=== PATIENT | female | born 1940 | race Caucasian/White ===

== ENCOUNTER 2019-04-29 17:02 | Emergency (ER) | payer MEDICARE, SELFPAY ==
[2019-04-29 17:15] VITALS: BP 158/93; PULSE 100; RESP 24; TEMP 36.8; O2SAT 98
[2019-04-29 17:33] VITALS: PULSE 91; RESP 12; O2SAT 96
[2019-04-29] MEDS: ALBUTEROL/IPRATROPIUM 3 ML AMPUL INH ×2 (17:34→18:49)
[2019-04-29 17:45] VITALS: BP 181/75; PULSE 84; RESP 17; O2SAT 96
[2019-04-29 18:02] VITALS: BP 174/76; PULSE 82; RESP 17; O2SAT 96
--- NOTE | 2019-04-29 18:14 | ED.SOB ---
HPI - SOB/Dyspnea General Chief Complaint: Shortness of Breath/Dyspnea Stated Complaint: DIFFICULTY BREATHING Time Seen by Provider: 04/29/19 18:01 Source: patient Mode of arrival: ambulatory Limitations: no limitations History of Present Illness 78-year-old female smoker with history of COPD presents to the emergency department a chief complaint of 3 days of worsening shortness of breath and wheezing. She states that her bronchodilators at home are not helping. Denies any cough, fever or chills. She denies any chest pain. She has no nausea, vomiting or diarrhea. She denies increased swelling in her legs, or change in orthopnea. She states a few weeks ago she had her normal dose of furosemide decreased from 40-20 mg daily MD Complaint: shortness of breath Onset (ago): day(s) Severity: moderate Consistency/Duration: constant Relieving factors: nothing Exacerbating factors: nothing Known history of: COPD Associated symptoms: denies other symptoms Treatment prior to arrival: bronchodilator Related Data Previous Rx's Medication Instructions Recorded azithromycin See Rx Instructions .ROUTE 04/29/19 .COMPLEX #6 tab prednisone 20 mg PO DAILY #5 tab 04/29/19 Review of Systems Constitutional Denies chills, Denies fever(s), Denies lethargy and Denies weakness Eyes Denies change in vision, Denies eye discharge, Denies irritation and Denies loss of vision ENT Ears, Nose, Mouth, and Throat: Denies change in voice, Denies neck pain and Denies sore throat Cardiovascular Denies chest pain, Denies irregular heart rhythm, Denies lightheadedness, Denies palpitations, Reports dyspnea, Denies dyspnea on exertion and Denies orthopnea Respiratory Denies cough, Reports dyspnea, Denies dyspnea on exertion and Reports wheezing Gastrointestinal Gastrointestinal: Denies abdominal pain, Denies change in bowel habits, Denies diarrhea, Denies nausea and Denies vomiting Genitourinary Denies hematuria, Denies flank pain, Denies urinary incontinence and Denies urinary urgency Musculoskeletal Denies neck pain Integumentary/Breasts Denies pruritus, Denies erythema, Denies rash and Denies wounds Neurologic Denies confusion, Denies loss of vision and Denies weakness Psychiatric Denies anxiety, Denies confusion, Denies depression, Denies homicidal ideation and Denies suicidal ideation Endocrine Denies palpitations Hematologic/Lymphatic Denies easy bruising Allergic/Immunologic Reports wheezing PFSH Social History Smoking Status: Current some day smoker Social History Smoking Status: Current some day smoker Exam Narrative Exam Narrative: GENERAL: 78-year-old female appears stated age, in mild distress, resting relatively comfortably. HEAD: Atraumatic. Normocephalic. No temporal or scalp tenderness. EYES: Pupils equal round and reactive. Extraocular motions intact. No scleral icterus. No injection or drainage. ENT: Nose without bleeding, purulent drainage or septal hematoma. Throat without erythema, tonsillar hypertrophy or exudate. Uvula midline. Airway patent. NECK: Trachea midline. No JVD or lymphadenopathy. Supple, nontender, no meningeal signs. CARDIOVASCULAR: Regular rate and rhythm without murmurs, gallops, or rubs. RESPIRATORY: Prolonged expiratory phase with decreased breath sounds bilaterally. Wheezing in all gamboa. No significant tachypnea or respiratory distress GASTROINTESTINAL: Abdomen soft, non-tender, nondistended. No hepato-splenomegaly, or palpable masses. No guarding. EXTREMITIES: No clubbing, cyanosis, but mild pitting edema noted B/L LE BACK: Nontender without deformity or crepitance. No flank tenderness. NEURO: AOx3. SKIN: No rash or erythema. Initial Vital Signs Initial Vital Signs: Vital Signs Temperature 98.3 F 04/29/19 17:15 Pulse Rate 100 H 04/29/19 17:15 Respiratory Rate 24 04/29/19 17:15 Blood Pressure 158/93 H 04/29/19 17:15 Pulse Oximetry 98 04/29/19 17:15 Course Orders Ordered: ED Orders 04/29/19 17:18 EKG-12 Lead Routine 04/29/19 17:35 B Type Natriuretic Peptide Stat Basic Metabolic Panel Stat Complete Blood Count AUTO DIFF Stat Procalcitonin Stat 04/29/19 18:17 XR chest 2V Stat Discontinued Medications Albuterol/Ipratropium (Duoneb) 3 ml INH NOW ONE Stop: 04/29/19 17:34 Last Admin: 04/29/19 17:34 Dose: 3 ml Albuterol/Ipratropium (Duoneb) 3 ml INH RTQ4HR PRN PRN Reason: Shortness Of Breath Last Admin: 04/29/19 18:49 Dose: 3 ml Methylprednisolone (Solu-Medrol 125 Mg Vial) 125 mg IV NOW ONE Stop: 04/29/19 18:18 Last Admin: 04/29/19 18:24 Dose: 125 mg Reevaluation(s) Reevaluation #1: Bronchodilators clear the patient's expiratory wheeze a small amount and faint crackles are now noted in bilateral bases Vital Signs - 8 hr 04/29/19 17:15 04/29/19 17:33 04/29/19 17:45 Temperature 98.3 F Pulse Rate 100 H 91 H 84 Respiratory Rate 24 12 17 Blood Pressure 158/93 H Blood Pressure [Left Arm] 181/75 H Pulse Oximetry 98 96 96 04/29/19 18:02 04/29/19 18:50 04/29/19 19:43 Temperature Pulse Rate 82 79 79 Respiratory Rate 17 20 22 Blood Pressure 182/87 H Blood Pressure [Left Arm] 174/76 H Pulse Oximetry 96 96 95 MDM - SOB/Dyspnea Lab Data Result diagrams: 04/29/19 17:35 04/29/19 17:35 Lab Results 04/29/19 04/29/19 04/29/19 Range/Units 17:35 17:35 17:35 WBC 4.7 (4.5-11.0) X10^3/uL RBC 4.06 (4.0-5.2) X10^6/uL Hgb 12.0 (12.0-16.0) g/dL Hct 35.5 L (36-46) % MCV 87.6 (80-100) fL MCH 29.5 (26-34) PG MCHC 33.7 (30-36) % RDW 14.9 H (11.6-14.8) % Plt Count 143 L (150-400) X10^3/uL Neut % (Auto) 71.4 (50-75) % Lymph % (Auto) 16.7 L (25-40) % [place] % (Auto) 9.6 (3-14) % Eos % (Auto) 1.4 L (2-4) % Baso % (Auto) 0.9 (0-2) % Neut # (Auto) 3400 (6680-5760) /uL Lymph # (Auto) 800 L (4105-5550) /uL [place] # (Auto) 500 (0-900) /uL Eos # (Auto) 100 (0-450) /uL Baso # (Auto) 0 (0-100) /uL Sodium 133 L (137-145) mmol/L Potassium 3.7 (3.4-5.1) mmol/L Chloride 105 (98-107) mmol/L Carbon Dioxide 24 (22-32) mmol/L BUN 25 H (7-17) mg/dL Creatinine 1.80 H (0.52-1.04) mg/dL Estimated GFR 27.3 L (>60) mL/min BUN/Creatinine Ratio 13.9 (6-22) Glucose 443 H (80-110) mg/dL Calcium 8.1 L (8.4-10.2) mg/dL B-Natriuretic Peptide (<100) Procalcitonin < 0.05 (<0.5) ng/mL 04/29/19 Range/Units 17:35 WBC (4.5-11.0) X10^3/uL RBC (4.0-5.2) X10^6/uL Hgb (12.0-16.0) g/dL Hct (36-46) % MCV (80-100) fL MCH (26-34) PG MCHC (30-36) % RDW (11.6-14.8) % Plt Count (150-400) X10^3/uL Neut % (Auto) (50-75) % Lymph % (Auto) (25-40) % [place] % (Auto) (3-14) % Eos % (Auto) (2-4) % Baso % (Auto) (0-2) % Neut # (Auto) (8057-3065) /uL Lymph # (Auto) (8036-2257) /uL [place] # (Auto) (0-900) /uL Eos # (Auto) (0-450) /uL Baso # (Auto) (0-100) /uL Sodium (137-145) mmol/L Potassium (3.4-5.1) mmol/L Chloride (98-107) mmol/L Carbon Dioxide (22-32) mmol/L BUN (7-17) mg/dL Creatinine (0.52-1.04) mg/dL Estimated GFR (>60) mL/min BUN/Creatinine Ratio (6-22) Glucose (80-110) mg/dL Calcium (8.4-10.2) mg/dL B-Natriuretic Peptide 552 H (<100) Procalcitonin (<0.5) ng/mL Imaging Data Chest x-ray: Radiologist's impression: YONI CUNHA 78 F [address] [address] XRay Report Signed Patient: YONI CUNHA DMR#: [id number] : 1940cct:[id number] Age/Sex: 78 / FDate of Service: 04/29/19 Loc: ED Accession Number: [id number] Procedure: XR chest 2V Ordering Provider: Balta Hinds D.O. PROCEDURE: XR CHEST 2V INDICATIONS: shortness of breath TECHNIQUE: 2 views of the chest were acquired. COMPARISON: [facility], CT, CT CHEST WO CON, 03/20/2016, 7:40. FINDINGS: Surgical changes and devices: None. Lungs and pleura: Increased interstitial markings with a central predominance bilaterally. Trace fluid in the right minor fissure. Small dependent bilateral pleural effusions. No pneumothorax. Increased AP diameter of the chest. No consolidation. Mediastinum: Mediastinal contours are within normal limits. Heart size is normal. Bones and chest wall: No suspicious bony abnormalities. Soft tissues appear unremarkable. IMPRESSION: Findings most compatible with mild fluid overload/CHF superimposed on a background of emphysematous change. Small bilateral pleural effusions. Dictated by: Brian Soni M.D. on 04/29/2019 at 19:00 Approved by: Brian Soni M.D. on 04/29/2019 at 19:03 [facility] Narrative Medical decision making narrative: 78-year-old female in no significant respiratory distress with stable vital signs responds minimally to bronchodilators. Chest x-ray suggests fluid overload, exam supports this somewhat a patient's history defers a bit. This most likely is a combination of multiple diagnoses including exacerbation of COPD as evidenced by prolonged expiratory phase and some improvement with bronchodilators, acute exacerbation of CHF as evidenced by chest x-ray findings, slight increase in BNP and faint crackles in her bases. The possibility of atypical pneumonia is considered as well. Patient responded to treatment, is non toxic, in no significant respiratory distress, not even requiring supplemental oxygen. She can appropriately be treated as an outpatient and has been given significant return precautions. Answered to her apparent satisfaction Discharge Plan Departure Patient Disposition: Home Clinical Impression: Acute exacerbation of chronic obstructive airways disease, Atypical pneumonia CHF (congestive heart failure) Qualifiers: Heart failure type: unspecified Heart failure chronicity: chronic Qualified Code(s): I50.9 - Heart failure, unspecified Discharge Date/Time: 04/29/19 19:44 Interventions: ED Discharge Assessment Last Done: 04/29/19 19:43 Instructions: Chronic Obstructive Pulmonary Disease Activity Restrictions/Additional Instructions: *You have been diagnosed with [acute exacerbation of COPD and possible atypical pneumonia] *What to do: *Take medications as directed: Please fill the prescriptions and also increase your water pill (Furosemide) back to 40mg daily for the next 4 days and then go back to your 20mg dosing again *Follow up with your primary care provider in 2-3 days, call for an appointment. Let them know you were seen in the Emergency Department and that we ask that you be seen in follow up *Return to ER if you should have any new, worsening or concerning symptoms Prescriptions: New azithromycin 250 mg tablet See Rx Instructions .ROUTE .COMPLEX Qty: 6 RF: 0 prednisone 20 mg tablet 20 mg PO DAILY Qty: 5 RF: 0
--- NOTE | 2019-04-29 18:17 | DI.RAD.S_ITS ---
PROCEDURE: XR CHEST 2V INDICATIONS: shortness of breath TECHNIQUE: 2 views of the chest were acquired. COMPARISON: [facility], CT, CT CHEST WO CON, 03/20/2016, 7:40. FINDINGS: Surgical changes and devices: None. Lungs and pleura: Increased interstitial markings with a central predominance bilaterally. Trace fluid in the right minor fissure. Small dependent bilateral pleural effusions. No pneumothorax. Increased AP diameter of the chest. No consolidation. Mediastinum: Mediastinal contours are within normal limits. Heart size is normal. Bones and chest wall: No suspicious bony abnormalities. Soft tissues appear unremarkable. IMPRESSION: Findings most compatible with mild fluid overload/CHF superimposed on a background of emphysematous change. Small bilateral pleural effusions. Dictated by: Brian Soni M.D. on 04/29/2019 at 19:00 Approved by: Brian Soni M.D. on 04/29/2019 at 19:03
[2019-04-29] MEDS: methylPREDNISolone 125 MG/2 ML VIAL IV (18:24)
[2019-04-29 18:29] LABS: Add Manual Diff / Slide Review NO; Basophils Absolute Auto 0 /uL (0-100); Basophils Percent Auto 0.9 % (0-2); Eosinophils Absolute Auto 100 /uL (0-450); Eosinophils Percent Auto 1.4 % (2-4); Hematocrit 35.5 % (36-46); Lymphocytes Absolute Auto 800 /uL (1100-4500); Lymphocytes Percent Auto 16.7 % (25-40); Mean Corpuscular HGB Conc 33.7 % (30-36); Mean Corpuscular Hemoglobin 29.5 PG (26-34); Mean Corpuscular Volume 87.6 fL (80-100); Monocytes Absolute Auto 500 /uL (0-900); Monocytes Percent Auto 9.6 % (3-14); Neutrophils Absolute Auto 3400 /uL (1500-7000); Neutrophils Percent Auto 71.4 % (50-75); Platelet Count 143 X10^3/uL (150-400); Red Blood Cell Count 4.06 X10^6/uL (4.0-5.2); Red Cell Distribution Width 14.9 % (11.6-14.8); White Blood Cell Count 4.7 X10^3/uL (4.5-11.0)
[2019-04-29 18:33] LABS: BUN Creatinine Ratio 13.9 (6-22); Blood Urea Nitrogen 25 mg/dL (7-17); Calcium 8.1 mg/dL (8.4-10.2); Carbon Dioxide 24 mmol/L (22-32); Chloride 105 mmol/L (98-107); Estimated Glomerular Filt Rate 27.3 mL/min (>60); Glucose 443 mg/dL (80-110); HEMOLYSIS < 15 (0-50); Potassium 3.7 mmol/L (3.4-5.1); Sodium 133 mmol/L (137-145)
--- NOTE | 2019-04-29 18:49 | ED_ITS ---
HPI - SOB/Dyspnea General Chief Complaint: Shortness of Breath/Dyspnea Stated Complaint: DIFFICULTY BREATHING Time Seen by Provider: 04/29/19 18:01 Source: patient Mode of arrival: ambulatory Limitations: no limitations History of Present Illness 78-year-old female smoker with history of COPD presents to the emergency department a chief complaint of 3 days of worsening shortness of breath and wheezing. She states that her bronchodilators at home are not helping. Denies any cough, fever or chills. She denies any chest pain. She has no nausea, vomiting or diarrhea. She denies increased swelling in her legs, or change in orthopnea. She states a few weeks ago she had her normal dose of furosemide decreased from 40-20 mg daily MD Complaint: shortness of breath Onset (ago): day(s) Severity: moderate Consistency/Duration: constant Relieving factors: nothing Exacerbating factors: nothing Known history of: COPD Associated symptoms: denies other symptoms Treatment prior to arrival: bronchodilator Related Data Previous Rx's Medication Instructions Recorded azithromycin See Rx Instructions .ROUTE 04/29/19 .COMPLEX #6 tab prednisone 20 mg PO DAILY #5 tab 04/29/19 Review of Systems Constitutional Denies chills, Denies fever(s), Denies lethargy and Denies weakness Eyes Denies change in vision, Denies eye discharge, Denies irritation and Denies loss of vision ENT Ears, Nose, Mouth, and Throat: Denies change in voice, Denies neck pain and Denies sore throat Cardiovascular Denies chest pain, Denies irregular heart rhythm, Denies lightheadedness, Denies palpitations, Reports dyspnea, Denies dyspnea on exertion and Denies orthopnea Respiratory Denies cough, Reports dyspnea, Denies dyspnea on exertion and Reports wheezing Gastrointestinal Gastrointestinal: Denies abdominal pain, Denies change in bowel habits, Denies diarrhea, Denies nausea and Denies vomiting Genitourinary Denies hematuria, Denies flank pain, Denies urinary incontinence and Denies urinary urgency Musculoskeletal Denies neck pain Integumentary/Breasts Denies pruritus, Denies erythema, Denies rash and Denies wounds Neurologic Denies confusion, Denies loss of vision and Denies weakness Psychiatric Denies anxiety, Denies confusion, Denies depression, Denies homicidal ideation and Denies suicidal ideation Endocrine Denies palpitations Hematologic/Lymphatic Denies easy bruising Allergic/Immunologic Reports wheezing PFSH Social History Smoking Status: Current some day smoker Social History Smoking Status: Current some day smoker Exam Narrative Exam Narrative: GENERAL: 78-year-old female appears stated age, in mild distress, resting relatively comfortably. HEAD: Atraumatic. Normocephalic. No temporal or scalp tenderness. EYES: Pupils equal round and reactive. Extraocular motions intact. No scleral ic terus. No injection or drainage. ENT: Nose without bleeding, purulent drainage or septal hematoma. Throat without erythema, tonsillar hypertrophy or exudate. Uvula midline. Airway patent. NECK: Trachea midline. No JVD or lymphadenopathy. Supple, nontender, no meningeal signs. CARDIOVASCULAR: Regular rate and rhythm without murmurs, gallops, or rubs. RESPIRATORY: Prolonged expiratory phase with decreased breath sounds bilaterally. Wheezing in all [place]. No significant tachypnea or respiratory distress GASTROINTESTINAL: Abdomen soft, non-tender, nondistended. No hepato- splenomegaly, or palpable masses. No guarding. EXTREMITIES: No clubbing, cyanosis, but mild pitting edema noted B/L LE BACK: Nontender without deformity or crepitance. No flank tenderness. NEURO: AOx3. SKIN: No rash or erythema. Initial Vital Signs Initial Vital Signs: Vital Signs Temperature 98.3 F 04/29/19 17:15 Pulse Rate 100 H 04/29/19 17:15 Respiratory Rate 24 04/29/19 17:15 Blood Pressure 158/93 H 04/29/19 17:15 Pulse Oximetry 98 04/29/19 17:15 Course Orders Ordered: ED Orders 04/29/19 17:18 EKG-12 Lead Routine 04/29/19 17:35 B Type Natriuretic Peptide Stat Basic Metabolic Panel Stat Complete Blood Count AUTO DIFF Stat Procalcitonin Stat 04/29/19 18:17 XR chest 2V Stat Discontinued Medications Albuterol/Ipratropium (Duoneb) 3 ml INH NOW ONE Stop: 04/29/19 17:34 Last Admin: 04/29/19 17:34 Dose: 3 ml Albuterol/Ipratropium (Duoneb) 3 ml INH RTQ4HR PRN PRN Reason: Shortness Of Breath Last Admin: 04/29/19 18:49 Dose: 3 ml Methylprednisolone (Solu-Medrol 125 Mg Vial) 125 mg IV NOW ONE Stop: 04/29/19 18:18 Last Admin: 04/29/19 18:24 Dose: 125 mg Reevaluation(s) Reevaluation #1: Bronchodilators clear the patient's expiratory wheeze a small amount and faint crackles are now noted in bilateral bases Vital Signs - 8 hr 04/29/19 17:15 04/29/19 17:33 04/29/19 17:45 Temperature 98.3 F Pulse Rate 100 H 91 H 84 Respiratory Rate 24 12 17 Blood Pressure 158/93 H Blood Pressure [Left Arm] 181/75 H Pulse Oximetry 98 96 96 04/29/19 18:02 04/29/19 18:50 04/29/19 19:43 Temperature Pulse Rate 82 79 79 Respiratory Rate 17 20 22 Blood Pressure 182/87 H Blood Pressure [Left Arm] 174/76 H Pulse Oximetry 96 96 95 MDM - SOB/Dyspnea Lab Data Result diagrams: 04/29/19 17:35 04/29/19 17:35 Lab Results 04/29/19 04/29/19 04/29/19 Range/Units 17:35 17:35 17:35 WBC 4.7 (4.5-11.0) X10^3/uL RBC 4.06 (4.0-5.2) X10^6/uL Hgb 12.0 (12.0-16.0) g/dL Hct 35.5 L (36-46) % MCV 87.6 (80-100) fL MCH 29.5 (26-34) PG MCHC 33.7 (30-36) % RDW 14.9 H (11.6-14.8) % Plt Count 143 L (150-400) X10^3/uL Neut % (Auto) 71.4 (50-75) % Lymph % (Auto) 16.7 L (25-40) % [place] % (Auto) 9.6 (3-14) % Eos % (Auto) 1.4 L (2-4) % Baso % (Auto) 0.9 (0-2) % Neut # (Auto) 3400 (6037-0656) /uL Lymph # (Auto) 800 L (9092-0542) /uL [place] # (Auto) 500 (0-900) /uL Eos # (Auto) 100 (0-450) /uL Baso # (Auto) 0 (0-100) /uL Sodium 133 L (137-145) mmol/L Potassium 3.7 (3.4-5.1) mmol/L Chloride 105 (98-107) mmol/L Carbon Dioxide 24 (22-32) mmol/L BUN 25 H (7-17) mg/dL Creatinine 1.80 H (0.52-1.04) mg/dL Estimated GFR 27.3 L (>60) mL/min BUN/Creatinine Ratio 13.9 (6-22) Glucose 443 H (80-110) mg/dL Calcium 8.1 L (8.4-10.2) mg/dL B-Natriuretic Peptide (<100) Procalcitonin < 0.05 (<0.5) ng/mL 04/29/19 Range/Units 17:35 WBC (4.5-11.0) X10^3/uL RBC (4.0-5.2) X10^6/uL Hgb (12.0-16.0) g/dL Hct (36-46) % MCV (80-100) fL MCH (26-34) PG MCHC (30-36) % RDW (11.6-14.8) % Plt Count (150-400) X10^3/uL Neut % (Auto) (50-75) % Lymph % (Auto) (25-40) % [place] % (Auto) (3-14) % Eos % (Auto) (2-4) % Baso % (Auto) (0-2) % Neut # (Auto) (9492-9125) /uL Lymph # (Auto) (2932-5627) /uL [place] # (Auto) (0-900) /uL Eos # (Auto) (0-450) /uL Baso # (Auto) (0-100) /uL Sodium (137-145) mmol/L Potassium (3.4-5.1) mmol/L Chloride (98-107) mmol/L Carbon Dioxide (22-32) mmol/L BUN (7-17) mg/dL Creatinine (0.52-1.04) mg/dL Estimated GFR (>60) mL/min BUN/Creatinine Ratio (6-22) Glucose (80-110) mg/dL Calcium (8.4-10.2) mg/dL B-Natriuretic Peptide 552 H (<100) Procalcitonin (<0.5) ng/mL Imaging Data Chest x-ray: Radiologist's impression: YONI CUNHA 78 F [address] [address] XRay Report Signed Patient: YONI CUNHA DMR#: [id number] : 1940cct:[id number] Age/Sex: 78 / FDate of Service: 04/29/19 Loc: ED Accession Number: [id number] Procedure: XR chest 2V Ordering Provider: Balta Hinds D.O. PROCEDURE: XR CHEST 2V INDICATIONS: shortness of breath TECHNIQUE: 2 views of the chest were acquired. COMPARISON: [facility], CT, CT CHEST WO CON, 03/20/2016, 7:40. FINDINGS: Surgical changes and devices: None. Lungs and pleura: Increased interstitial markings with a central predominance bilaterally. Trace fluid in the right minor fissure. Small dependent bilateral pleural effusions. No pneumothorax. Increased AP diameter of the chest. No consolidation. Mediastinum: Mediastinal contours are within normal limits. Heart size is normal. Bones and chest wall: No suspicious bony abnormalities. Soft tissues appear unremarkable. IMPRESSION: Findings most compatible with mild fluid overload/CHF superimposed on a background of emphysematous change. Small bilateral pleural effusions. Dictated by: Brian Soni M.D. on 04/29/2019 at 19:00 Approved by: Brian Soni M.D. on 04/29/2019 at 19:03 [facility] Narrative Medical decision making narrative: 78-year-old female in no significant respiratory distress with stable vital signs responds minimally to bronchodilators. Chest x-ray suggests fluid overload, exam supports this somewhat a patient's history defers a bit. This most likely is a combination of multiple diagnoses including exacerbation of COPD as evidenced by prolonged expiratory phase and some improvement with bronchodilators, acute exacerbation of CHF as evidenced by chest x-ray findings, slight increase in BNP and faint crackles in her bases. The possibility of atypical pneumonia is considered as well. Patient responded to treatment, is non toxic, in no significant respiratory distress, not even requiring supplemental oxygen. She can appropriately be treated as an outpatient and has been given significant return precautions. Answered to her apparent satisfaction Discharge Plan Departure Patient Disposition: Home Clinical Impression: Acute exacerbation of chronic obstructive airways disease, Atypical pneumonia CHF (congestive heart failure) Qualifiers: Heart failure type: unspecified Heart failure chronicity: chronic Qualified Code(s): I50.9 - Heart failure, unspecified Discharge Date/Time: 04/29/19 19:44 Interventions: ED Discharge Assessment Last Done: 04/29/19 19:43 Instructions: Chronic Obstructive Pulmonary Disease Activity Restrictions/Additional Instructions: *You have been diagnosed with [acute exacerbation of COPD and possible atypical pneumonia] *What to do: *Take medications as directed: Please fill the prescriptions and also increase your water pill (Furosemide) back to 40mg daily for the next 4 days and then go back to your 20mg dosing again *Follow up with your primary care provider in 2-3 days, call for an appointment. Let them know you were seen in the Emergency Department and that we ask that you be seen in follow up *Return to ER if you should have any new, worsening or concerning symptoms Prescriptions: New azithromycin 250 mg tablet See Rx Instructions .ROUTE .COMPLEX Qty: 6 RF: 0 prednisone 20 mg tablet 20 mg PO DAILY Qty: 5 RF: 0
[2019-04-29 18:50] VITALS: PULSE 79; RESP 20; O2SAT 96
[2019-04-29 18:51] LABS: Procalcitonin < 0.05 ng/mL (<0.5)
[2019-04-29 19:43] VITALS: BP 182/87; PULSE 79; RESP 22; O2SAT 95
[2019-04-29 19:52] LABS: B Type Natriuretic Peptide 552 (<100)
== END 2019-04-29 19:44 | disposition home or self-care (01) ==
PROVIDERS: Emergency Provider Emergency Medicine
DX: J44.1 Chronic obstructive pulmonary disease with (acute) exacerbation (principal); J18.9 Pneumonia, unspecified organism; I50.9 Heart failure, unspecified
CPT/HCPCS: 71046; 80048; 83880; 84145; 85025; 93005; 94640; 96374; 99282; 99285; J2930

== ENCOUNTER 2019-05-01 07:23 | Emergency (ER) | payer MEDICARE, SELFPAY ==
[2019-05-01] VITALS (7 sets, daily range): BP systolic 167–190; BP diastolic 76–108; PULSE 78–92; RESP 14–20; TEMP 36.3–36.8; O2SAT 98–100
--- NOTE | 2019-05-01 07:35 | DI.RAD.S_ITS ---
PROCEDURE: XR CHEST 2V INDICATIONS: shortness of breath TECHNIQUE: 2 views of the chest were acquired. COMPARISON: [facility], CR, CHEST 2VW, 04/02/2015, 11:04. [facility], CR, XR CHEST 2V, 04/29/2019, 18:17. [facility], CT, CT CHEST WO CON, 03/20/2016, 7:40. FINDINGS: Surgical changes and devices: None. Lungs and pleura: Bilateral interstitial infiltrates. There is mild pulmonary fibrosis in lower lobes. No pleural effusions or pneumothorax. Mediastinum: Mediastinal contours are normal. Heart size is normal. Bones and chest wall: No suspicious bony abnormalities. Soft tissues appear unremarkable. IMPRESSION: Bilateral interstitial infiltrates and mild pulmonary fibrosis consistent with chronic interstitial lung disease. Dictated by: Duc Gonzalez M.D. on 05/01/2019 at 8:45 Approved by: Duc Gonzalez M.D. on 05/01/2019 at 8:47
[2019-05-01] MEDS: ALBUTEROL/IPRATROPIUM 3 ML AMPUL INH (07:40)
--- NOTE | 2019-05-01 07:46 | ED.SOB ---
HPI - SOB/Dyspnea General Chief Complaint: Shortness of Breath/Dyspnea Stated Complaint: Can't breath Time Seen by Provider: 05/01/19 07:28 Source: patient Mode of arrival: ambulatory Limitations: no limitations History of Present Illness Patient is a 78-year-old female with history of COPD and CHF, coronary artery disease presenting with increasing shortness of breath. She was seen evaluated here 2 days ago for the same. Apparently her furosemide dose decreased from 40-20 mg few weeks ago. 2 days ago with thought she had COPD she was placed on prednisone and azithromycin. She states that she really does not feel any better this morning she woke up and she was worse. She feels like she needs to cough but she can't cough anything up. She has not had fever or chills. She denies any chest pain. She denies any swelling in her legs. MD Complaint: shortness of breath and cough Onset (ago): day(s) Severity: moderate Consistency/Duration: constant Relieving factors: nothing Exacerbating factors: nothing Known history of: COPD and congestive heart failure Related Data Home oxygen amount: none Home Medications Medication Instructions Recorded Confirmed albuterol sulfate 3 ml INHALATION Q6H PRN 05/01/19 05/01/19 amlodipine 5 mg PO DAILY 05/01/19 05/01/19 aspirin 81 mg PO DAILY 05/01/19 05/01/19 atorvastatin 40 mg PO QPM 05/01/19 05/01/19 buspirone 7.5 mg PO TID 05/01/19 05/01/19 carvedilol 12.5 mg PO BID 05/01/19 05/01/19 clopidogrel 75 mg PO DAILY 05/01/19 05/01/19 furosemide 40 mg PO DAILY 05/01/19 05/01/19 insulin glargine [Lantus Solostar 31 units SUBCUT BID 05/01/19 05/01/19 U-100 Insulin] losartan 100 mg PO DAILY 05/01/19 05/01/19 potassium chloride 20 meq PO DAILY 05/01/19 05/01/19 Previous Rx's Medication Instructions Recorded azithromycin See Rx Instructions .ROUTE 04/29/19 .COMPLEX #6 tab prednisone 20 mg PO DAILY #5 tab 04/29/19 Allergies Allergy/AdvReac Type Severity Reaction Status Date / Time No Known Drug Allergies Allergy Verified 05/01/19 07:43 Review of Systems Review of Systems ROS Unobtainable: All systems reviewed & are unremarkable except as noted in HPI and below Constitutional Denies chills, Denies fever(s), Denies lethargy and Denies weakness Eyes Denies change in vision, Denies eye discharge, Denies irritation and Denies loss of vision ENT Ears, Nose, Mouth, and Throat: Denies change in voice, Denies neck pain and Denies sore throat Cardiovascular Denies chest pain, Denies edema, Denies irregular heart rhythm and Reports dyspnea Respiratory Reports as per HPI, Reports chest congestion, Reports cough and Reports dyspnea Gastrointestinal Gastrointestinal: Denies abdominal pain, Denies change in bowel habits, Denies diarrhea, Denies nausea and Denies vomiting Genitourinary Denies hematuria, Denies flank pain, Denies urinary incontinence and Denies urinary urgency Musculoskeletal Denies neck pain Integumentary/Breasts Denies pruritus, Denies erythema, Denies rash and Denies wounds Neurologic Denies loss of vision and Denies weakness [facility] Medical History CHF (congestive heart failure) (Acute) COPD (chronic obstructive pulmonary disease) (Acute) Coronary artery disease (Acute) Social History Smoking Status: Current every day smoker Social History Smoking Status: Current every day smoker Exam Initial Vital Signs Initial Vital Signs: Vital Signs Temperature 97.3 F L 05/01/19 07:35 Pulse Rate 92 H 05/01/19 07:35 Respiratory Rate 20 05/01/19 07:35 Blood Pressure 170/108 H 05/01/19 07:35 Pulse Oximetry 99 05/01/19 07:35 GENERAL: Alert female appears in mild respiratory distress HEENT: Head atraumatic,EOMI, pupils reactive, face symmetric CARDIOVASCULAR: Regular rate and rhythm without murmurs, rubs or gallops. RESPIRATORY: Coarse breath sounds bilaterally wheezing bilaterally able to speak in 5-10 word sentences ABDOMEN: Soft, nontender. Normoactive bowel sounds all 4 quadrants. No guarding or rebound. EXTREMITIES: Normal range of motion, no clubbing or edema. Neurovascularly intact NEUROLOGICAL: Alert and oriented x4.Normal gait and speech. Cranial nerves II through XII grossly intact. SKIN: Warm, dry, no laceration, no petechiae, no rashes or lesions. Course Orders Ordered: ED Orders 05/01/19 07:35 XR chest 2V Stat EKG-12 Lead Stat Measure peak expiratory flow ONCE RT Consult Eval and Treat Now 05/01/19 07:50 Partial Thromboplastin Time Stat 05/01/19 07:58 B Type Natriuretic Peptide Stat Complete Blood Count AUTO DIFF Stat Comprehensive Metabolic Panel Stat Lactate (Lactic Acid) Stat Troponin & CK Cardiac Panel Stat 05/01/19 09:08 EKG-12 Lead Stat 05/01/19 10:12 PT [Prothrombin Time INR] Stat Discontinued Medications Albuterol/Ipratropium (Duoneb) 3 ml INH NOW ONE Stop: 05/01/19 07:38 Last Admin: 05/01/19 07:40 Dose: 3 ml Aspirin (Aspirin Chew) 324 mg PO NOW ONE Stop: 05/01/19 09:09 Last Admin: 05/01/19 09:29 Dose: 324 mg Furosemide (Lasix) 40 mg IV NOW ONE Stop: 05/01/19 08:18 Last Admin: 05/01/19 08:32 Dose: 40 mg Heparin Sodium (Porcine) (Heparin) 5,000 unit IV NOW ONE Stop: 05/01/19 09:09 Last Admin: 05/01/19 09:53 Dose: 5,000 unit Heparin Sodium/Dextrose (Heparin Drip) 25,000 unit in 500 mls @ 19.488 mls/hr IV CONT JYOTI; Protocol Last Titration: 05/01/19 11:22 Dose: 0 units/kg/hr, 0 mls/hr Admin: 05/01/19 09:52 Dose: 12 units/kg/hr, 19.488 mls/hr Nitroglycerin (Nitrostat) 0.4 mg SL NOW ONE Stop: 05/01/19 09:11 Last Admin: 05/01/19 09:29 Dose: 0.4 mg Vital Signs - 8 hr 05/01/19 07:35 05/01/19 07:47 05/01/19 08:55 Temperature 97.3 F L Pulse Rate 92 H 78 82 Respiratory Rate 20 16 16 Blood Pressure 170/108 H Blood Pressure [Right Arm] 176/76 H Pulse Oximetry 99 98 98 05/01/19 09:40 05/01/19 10:37 05/01/19 11:11 Temperature Pulse Rate 84 80 83 Respiratory Rate 14 17 14 Blood Pressure Blood Pressure [Right Arm] 167/84 H 178/77 H 190/88 H Pulse Oximetry 100 100 100 05/01/19 11:28 Temperature 98.2 F Pulse Rate 83 Respiratory Rate 18 Blood Pressure 183/77 H Blood Pressure [Right Arm] Pulse Oximetry 100 MDM - SOB/Dyspnea Lab Data Attestation: I reviewed the patient's lab results. Result diagrams: 05/01/19 07:58 05/01/19 07:58 Lab Results 05/01/19 05/01/19 05/01/19 Range/Units 07:50 07:58 07:58 WBC 6.3 (4.5-11.0) X10^3/uL RBC 4.22 (4.0-5.2) X10^6/uL Hgb 12.4 (12.0-16.0) g/dL Hct 36.5 (36-46) % MCV 86.5 (80-100) fL MCH 29.3 (26-34) PG MCHC 33.9 (30-36) % RDW 14.7 (11.6-14.8) % Plt Count 150 (150-400) X10^3/uL Neut % (Auto) 79.2 H (50-75) % Lymph % (Auto) 13.4 L (25-40) % Glasscock % (Auto) 6.8 (3-14) % Eos % (Auto) 0.3 L (2-4) % Baso % (Auto) 0.3 (0-2) % Neut # (Auto) 5000 (2625-0845) /uL Lymph # (Auto) 800 L (9422-7830) /uL Glasscock # (Auto) 400 (0-900) /uL Eos # (Auto) 0 (0-450) /uL Baso # (Auto) 0 (0-100) /uL PT (10.1-12.7) SECONDS INR (0.9-1.3) APTT 28 (26.4-36.2) SECONDS Sodium 135 L (137-145) mmol/L Potassium 3.9 (3.4-5.1) mmol/L Chloride 102 (98-107) mmol/L Carbon Dioxide 23 (22-32) mmol/L BUN 39 H (7-17) mg/dL Creatinine 2.10 H (0.52-1.04) mg/dL Estimated GFR 22.8 L (>60) mL/min BUN/Creatinine Ratio 18.6 (6-22) Glucose 398 H (80-110) mg/dL Lactate (0.7-2.1) mmol/L Calcium 8.6 (8.4-10.2) mg/dL Total Bilirubin 0.4 (0.2-1.3) mg/dL AST 28 (14-36) IU/L ALT 21 (9-52) IU/L Alkaline Phosphatase 131 H (38-126) U/L Total Creatine Kinase (30-135) U/L CK-MB (CK-2) (<2.37) ng/mL CK-MB (CK-2) Rel Index (1.5-5.0) % Troponin I (0.01-0.034) ng/mL B-Natriuretic Peptide (<100) Total Protein 6.3 (6.3-8.2) g/dL Albumin 3.2 L (3.5-5.0) g/dL Globulin 3.1 (1.7-4.1) g/dL Albumin/Globulin Ratio 1.0 (1.0-2.8) 05/01/19 05/01/19 05/01/19 Range/Units 07:58 07:58 07:58 WBC (4.5-11.0) X10^3/uL RBC (4.0-5.2) X10^6/uL Hgb (12.0-16.0) g/dL Hct (36-46) % MCV (80-100) fL MCH (26-34) PG MCHC (30-36) % RDW (11.6-14.8) % Plt Count (150-400) X10^3/uL Neut % (Auto) (50-75) % Lymph % (Auto) (25-40) % Glasscock % (Auto) (3-14) % Eos % (Auto) (2-4) % Baso % (Auto) (0-2) % Neut # (Auto) (0013-6856) /uL Lymph # (Auto) (7748-2345) /uL Glasscock # (Auto) (0-900) /uL Eos # (Auto) (0-450) /uL Baso # (Auto) (0-100) /uL PT (10.1-12.7) SECONDS INR (0.9-1.3) APTT (26.4-36.2) SECONDS Sodium (137-145) mmol/L Potassium (3.4-5.1) mmol/L Chloride (98-107) mmol/L Carbon Dioxide (22-32) mmol/L BUN (7-17) mg/dL Creatinine (0.52-1.04) mg/dL Estimated GFR (>60) mL/min BUN/Creatinine Ratio (6-22) Glucose (80-110) mg/dL Lactate 1.2 (0.7-2.1) mmol/L Calcium (8.4-10.2) mg/dL Total Bilirubin (0.2-1.3) mg/dL AST (14-36) IU/L ALT (9-52) IU/L Alkaline Phosphatase (38-126) U/L Total Creatine Kinase 202 H (30-135) U/L CK-MB (CK-2) 6.14 H (<2.37) ng/mL CK-MB (CK-2) Rel Index 3.0 (1.5-5.0) % Troponin I 6.130 H* (0.01-0.034) ng/mL B-Natriuretic Peptide 1360 H (<100) Total Protein (6.3-8.2) g/dL Albumin (3.5-5.0) g/dL Globulin (1.7-4.1) g/dL Albumin/Globulin Ratio (1.0-2.8) // Range/Units 10:12 WBC (4.5-11.0) X10^3/uL RBC (4.0-5.2) X10^6/uL Hgb (12.0-16.0) g/dL Hct (36-46) % MCV (80-100) fL MCH (26-34) PG MCHC (30-36) % RDW (11.6-14.8) % Plt Count (150-400) X10^3/uL Neut % (Auto) (50-75) % Lymph % (Auto) (25-40) % Glasscock % (Auto) (3-14) % Eos % (Auto) (2-4) % Baso % (Auto) (0-2) % Neut # (Auto) (7329-0560) /uL Lymph # (Auto) (8827-9422) /uL Glasscock # (Auto) (0-900) /uL Eos # (Auto) (0-450) /uL Baso # (Auto) (0-100) /uL PT 10.7 (10.1-12.7) SECONDS INR 0.9 (0.9-1.3) APTT (26.4-36.2) SECONDS Sodium (137-145) mmol/L Potassium (3.4-5.1) mmol/L Chloride (98-107) mmol/L Carbon Dioxide (22-32) mmol/L BUN (7-17) mg/dL Creatinine (0.52-1.04) mg/dL Estimated GFR (>60) mL/min BUN/Creatinine Ratio (6-22) Glucose (80-110) mg/dL Lactate (0.7-2.1) mmol/L Calcium (8.4-10.2) mg/dL Total Bilirubin (0.2-1.3) mg/dL AST (14-36) IU/L ALT (9-52) IU/L Alkaline Phosphatase (38-126) U/L Total Creatine Kinase (30-135) U/L CK-MB (CK-2) (<2.37) ng/mL CK-MB (CK-2) Rel Index (1.5-5.0) % Troponin I (0.01-0.034) ng/mL B-Natriuretic Peptide (<100) Total Protein (6.3-8.2) g/dL Albumin (3.5-5.0) g/dL Globulin (1.7-4.1) g/dL Albumin/Globulin Ratio (1.0-2.8) Imaging Data Chest x-ray: Radiologist's impression: PROCEDURE: XR CHEST 2V INDICATIONS: shortness of breath TECHNIQUE: 2 views of the chest were acquired. COMPARISON: [facility], CR, CHEST 2VW, 04/02/2015, 11:04. [facility], CR, XR CHEST 2V, 04/29/2019, 18:17. [facility], CT, CT CHEST WO SINAN, 03/20/2016, 7:40. FINDINGS: Surgical changes and devices: None. Lungs and pleura: Bilateral interstitial infiltrates. There is mild pulmonary fibrosis in lower lobes. No pleural effusions or pneumothorax. Mediastinum: Mediastinal contours are normal. Heart size is normal. Bones and chest wall: No suspicious bony abnormalities. Soft tissues appear unremarkable. IMPRESSION: Bilateral interstitial infiltrates and mild pulmonary fibrosis consistent with chronic interstitial lung disease. Dictated by: Duc Gonzalez M.D. on 05/01/2019 at 8:45 ECG Data Attestation: I personally reviewed and interpreted this ECG as follows: Prior ECG tracings: available for review Interpretation: EKG 1.: Sinus rhythm rate [address] depression noted in V6, similar to [address] elevations EKG 2. Sinus rhythm rate 83 similar to prior no ST elevation MDM Narrative Medical decision making narrative: Patient is significantly elevated BNP and difficulty breathing. She is given Lasix which she has urinated with. She is also given nitroglycerin to help with some dice diuresis. She had never point had any chest pain. Troponin came back at critically high at 6.13. She has multiple coronary stents and will require cardiology evaluation with which is not available at [facility]. He was given aspirin and started on heparin drip. Creatinine is also elevated at 2.1 today previously 1.8. Her rubber mill tender is Darin Yoo, at [facility]. Unfortunately [facility] does not have any beds available. Dr. Khanna hospitalist at [facility] as notated on patient's symptoms test results and will happily except patient. I have called her son Primitivo and updated him that she will be transferred to [facility]. Patient has remained stable in the emergency department she has remained chest pain-free. Her breathing has become slightly easier with Lasix and nitroglycerin. Critical Care Time Critical Care Time: Yes Total Critical Care Time: 30 Attestation: The high probability of a clinically significant, sudden or life threatening deterioration of the [cardiovascular] system(s) required my full and direct attention, intervention and personal management. The aggregate critical care time was 30 minutes. This time is in addition to time spent performing reported procedures but includes the following: [x] Data Review and interpretation [x] Patient assessment and monitoring of vital signs [x] Documentation [x] Medication orders and management Discharge Plan Departure Patient Disposition: [facility] Clinical Impression: Acute non-ST elevation myocardial infarction (NSTEMI) CHF (congestive heart failure) Qualifiers: Heart failure type: unspecified Heart failure chronicity: acute on chronic Qualified Code(s): I50.9 - Heart failure, unspecified Discharge Date/Time: 05/01/19 11:32 Interventions: ED Discharge Assessment Last Done: 05/01/19 11:28 Prescriptions: No Action azithromycin 250 mg tablet See Rx Instructions .ROUTE .COMPLEX Qty: 6 RF: 0 prednisone 20 mg tablet 20 mg PO DAILY Qty: 5 RF: 0 furosemide 40 mg tablet 40 mg PO DAILY RF: 0 atorvastatin 40 mg tablet 40 mg PO QPM RF: 0 carvedilol 12.5 mg tablet 12.5 mg PO BID RF: 0 albuterol sulfate 2.5 mg /3 mL (0.083 %) Solution For Nebulization 3 ml inhalation Q6H PRN (Reason: Wheezing) RF: 0 clopidogrel 75 mg Tablet 75 mg PO DAILY RF: 0 amlodipine 5 mg tablet 5 mg PO DAILY RF: 0 aspirin 81 mg Tablet,Delayed Release (Dr/Ec) 81 mg PO DAILY RF: 0 potassium chloride 20 mEq Tablet,Er Particles/Crystals 20 meq PO DAILY RF: 0 buspirone 7.5 mg Tablet 7.5 mg PO TID RF: 0 losartan 100 mg tablet 100 mg PO DAILY RF: 0 Lantus Solostar U-100 Insulin 100 unit/mL (3 mL) insulin pen 31 units subcut BID RF: 0
--- NOTE | 2019-05-01 07:49 | ED_ITS ---
HPI - SOB/Dyspnea General Chief Complaint: Shortness of Breath/Dyspnea Stated Complaint: Can't breath Time Seen by Provider: 05/01/19 07:28 Source: patient Mode of arrival: ambulatory Limitations: no limitations History of Present Illness Patient is a 78-year-old female with history of COPD and CHF, coronary artery disease presenting with increasing shortness of breath. She was seen evaluated here 2 days ago for the same. Apparently her furosemide dose decreased from 40- 20 mg few weeks ago. 2 days ago with thought she had COPD she was placed on prednisone and azithromycin. She states that she really does not feel any better this morning she woke up and she was worse. She feels like she needs to cough but she can't cough anything up. She has not had fever or chills. She denies any chest pain. She denies any swelling in her legs. MD Complaint: shortness of breath and cough Onset (ago): day(s) Severity: moderate Consistency/Duration: constant Relieving factors: nothing Exacerbating factors: nothing Known history of: COPD and congestive heart failure Related Data Home oxygen amount: none Home Medications Medication Instructions Recorded Confirmed albuterol sulfate 3 ml INHALATION Q6H PRN 05/01/19 05/01/19 amlodipine 5 mg PO DAILY 05/01/19 05/01/19 aspirin 81 mg PO DAILY 05/01/19 05/01/19 atorvastatin 40 mg PO QPM 05/01/19 05/01/19 buspirone 7.5 mg PO TID 05/01/19 05/01/19 carvedilol 12.5 mg PO BID 05/01/19 05/01/19 clopidogrel 75 mg PO DAILY 05/01/19 05/01/19 furosemide 40 mg PO DAILY 05/01/19 05/01/19 insulin glargine [Lantus Solostar 31 units SUBCUT BID 05/01/19 05/01/19 U-100 Insulin] losartan 100 mg PO DAILY 05/01/19 05/01/19 potassium chloride 20 meq PO DAILY 05/01/19 05/01/19 Previous Rx's Medication Instructions Recorded azithromycin See Rx Instructions .ROUTE 04/29/19 .COMPLEX #6 tab prednisone 20 mg PO DAILY #5 tab 04/29/19 Allergies Allergy/AdvReac Type Severity Reaction Status Date / Time No Known Drug Allergies Allergy Verified 05/01/19 07:43 Review of Systems Review of Systems ROS Unobtainable: All systems reviewed & are unremarkable except as noted in HPI and below Constitutional Denies chills, Denies fever(s), Denies lethargy and Denies weakness Eyes Denies change in vision, Denies eye discharge, Denies irritation and Denies loss of vision ENT Ears, Nose, Mouth, and Throat: Denies change in voice, Denies neck pain and Denies sore throat Cardiovascular Denies chest pain, Denies edema, Denies irregular heart rhythm and Reports dyspnea Respiratory Reports as per HPI, Reports chest congestion, Reports cough and Reports dyspnea Gastrointestinal Gastrointestinal: Denies abdominal pain, Denies change in bowel habits, Denies diarrhea, Denies nausea and Denies vomiting Genitourinary Denies hematuria, Denies flank pain, Denies urinary incontinence and Denies urinary urgency Musculoskeletal Denies neck pain Integumentary/Breasts Denies pruritus, Denies erythema, Denies rash and Denies wounds Neurologic Denies loss of vision and Denies weakness [facility] Medical History CHF (congestive heart failure) (Acute) COPD (chronic obstructive pulmonary disease) (Acute) Coronary artery disease (Acute) Social History Smoking Status: Current every day smoker Social History Smoking Status: Current every day smoker Exam Initial Vital Signs Initial Vital Signs: Vital Signs Temperature 97.3 F L 05/01/19 07:35 Pulse Rate 92 H 05/01/19 07:35 Respiratory Rate 20 05/01/19 07:35 Blood Pressure 170/108 H 05/01/19 07:35 Pulse Oximetry 99 05/01/19 07:35 GENERAL: Alert female appears in mild respiratory distress HEENT: Head atraumatic,EOMI, pupils reactive, face symmetric CARDIOVASCULAR: Regular rate and rhythm without murmurs, rubs or gallops. RESPIRATORY: Coarse breath sounds bilaterally wheezing bilaterally able to speak in 5-10 word sentences ABDOMEN: Soft, nontender. Normoactive bowel sounds all 4 quadrants. No guarding or rebound. EXTREMITIES: Normal range of motion, no clubbing or edema. Neurovascularly intact NEUROLOGICAL: Alert and oriented x4.Normal gait and speech. Cranial nerves II through XII grossly intact. SKIN: Warm, dry, no laceration, no petechiae, no rashes or lesions. Course Orders Ordered: ED Orders 05/01/19 07:35 XR chest 2V Stat EKG-12 Lead Stat Measure peak expiratory flow ONCE RT Consult Eval and Treat Now 05/01/19 07:50 Partial Thromboplastin Time Stat 05/01/19 07:58 B Type Natriuretic Peptide Stat Complete Blood Count AUTO DIFF Stat Comprehensive Metabolic Panel Stat Lactate (Lactic Acid) Stat Troponin & CK Cardiac Panel Stat 05/01/19 09:08 EKG-12 Lead Stat 05/01/19 10:12 PT [Prothrombin Time INR] Stat Discontinued Medications Albuterol/Ipratropium (Duoneb) 3 ml INH NOW ONE Stop: 05/01/19 07:38 Last Admin: 05/01/19 07:40 Dose: 3 ml Aspirin (Aspirin Chew) 324 mg PO NOW ONE Stop: 05/01/19 09:09 Last Admin: 05/01/19 09:29 Dose: 324 mg Furosemide (Lasix) 40 mg IV NOW ONE Stop: 05/01/19 08:18 Last Admin: 05/01/19 08:32 Dose: 40 mg Heparin Sodium (Porcine) (Heparin) 5,000 unit IV NOW ONE Stop: 05/01/19 09:09 Last Admin: 05/01/19 09:53 Dose: 5,000 unit Heparin Sodium/Dextrose (Heparin Drip) 25,000 unit in 500 mls @ 19.488 mls/hr IV CONT JYOTI; Protocol Last Titration: 05/01/19 11:22 Dose: 0 units/kg/hr, 0 mls/hr Admin: 05/01/19 09:52 Dose: 12 units/kg/hr, 19.488 mls/hr Nitroglycerin (Nitrostat) 0.4 mg SL NOW ONE Stop: 05/01/19 09:11 Last Admin: 05/01/19 09:29 Dose: 0.4 mg Vital Signs - 8 hr 05/01/19 07:35 05/01/19 07:47 05/01/19 08:55 Temperature 97.3 F L Pulse Rate 92 H 78 82 Respiratory Rate 20 16 16 Blood Pressure 170/108 H Blood Pressure [Right Arm] 176/76 H Pulse Oximetry 99 98 98 05/01/19 09:40 05/01/19 10:37 05/01/19 11:11 Temperature Pulse Rate 84 80 83 Respiratory Rate 14 17 14 Blood Pressure Blood Pressure [Right Arm] 167/84 H 178/77 H 190/88 H Pulse Oximetry 100 100 100 05/01/19 11:28 Temperature 98.2 F Pulse Rate 83 Respiratory Rate 18 Blood Pressure 183/77 H Blood Pressure [Right Arm] Pulse Oximetry 100 MDM - SOB/Dyspnea Lab Data Attestation: I reviewed the patient's lab results. Result diagrams: 05/01/19 07:58 05/01/19 07:58 Lab Results 05/01/19 05/01/19 05/01/19 Range/Units 07:50 07:58 07:58 WBC 6.3 (4.5-11.0) X10^3/uL RBC 4.22 (4.0-5.2) X10^6/uL Hgb 12.4 (12.0-16.0) g/dL Hct 36.5 (36-46) % MCV 86.5 (80-100) fL MCH 29.3 (26-34) PG MCHC 33.9 (30-36) % RDW 14.7 (11.6-14.8) % Plt Count 150 (150-400) X10^3/uL Neut % (Auto) 79.2 H (50-75) % Lymph % (Auto) 13.4 L (25-40) % [place] % (Auto) 6.8 (3-14) % Eos % (Auto) 0.3 L (2-4) % Baso % (Auto) 0.3 (0-2) % Neut # (Auto) 5000 (8853-6790) /uL Lymph # (Auto) 800 L (5054-3835) /uL [place] # (Auto) 400 (0-900) /uL Eos # (Auto) 0 (0-450) /uL Baso # (Auto) 0 (0-100) /uL PT (10.1-12.7) SECONDS INR (0.9-1.3) APTT 28 (26.4-36.2) SECONDS Sodium 135 L (137-145) mmol/L Potassium 3.9 (3.4-5.1) mmol/L Chloride 102 (98-107) mmol/L Carbon Dioxide 23 (22-32) mmol/L BUN 39 H (7-17) mg/dL Creatinine 2.10 H (0.52-1.04) mg/dL Estimated GFR 22.8 L (>60) mL/min BUN/Creatinine Ratio 18.6 (6-22) Glucose 398 H (80-110) mg/dL Lactate (0.7-2.1) mmol/L Calcium 8.6 (8.4-10.2) mg/dL Total Bilirubin 0.4 (0.2-1.3) mg/dL AST 28 (14-36) IU/L ALT 21 (9-52) IU/L Alkaline Phosphatase 131 H (38-126) U/L Total Creatine Kinase (30-135) U/L CK-MB (CK-2) (<2.37) ng/mL CK-MB (CK-2) Rel Index (1.5-5.0) % Troponin I (0.01-0.034) ng/mL B-Natriuretic Peptide (<100) Total Protein 6.3 (6.3-8.2) g/dL Albumin 3.2 L (3.5-5.0) g/dL Globulin 3.1 (1.7-4.1) g/dL Albumin/Globulin Ratio 1.0 (1.0-2.8) 05/01/19 05/01/19 05/01/19 Range/Units 07:58 07:58 07:58 WBC (4.5-11.0) X10^3/uL RBC (4.0-5.2) X10^6/uL Hgb (12.0-16.0) g/dL Hct (36-46) % MCV (80-100) fL MCH (26-34) PG MCHC (30-36) % RDW (11.6-14.8) % Plt Count (150-400) X10^3/uL Neut % (Auto) (50-75) % Lymph % (Auto) (25-40) % [place] % (Auto) (3-14) % Eos % (Auto) (2-4) % Baso % (Auto) (0-2) % Neut # (Auto) (0645-8366) /uL Lymph # (Auto) (5242-1759) /uL [place] # (Auto) (0-900) /uL Eos # (Auto) (0-450) /uL Baso # (Auto) (0-100) /uL PT (10.1-12.7) SECONDS INR (0.9-1.3) APTT (26.4-36.2) SECONDS Sodium (137-145) mmol/L Potassium (3.4-5.1) mmol/L Chloride (98-107) mmol/L Carbon Dioxide (22-32) mmol/L BUN (7-17) mg/dL Creatinine (0.52-1.04) mg/dL Estimated GFR (>60) mL/min BUN/Creatinine Ratio (6-22) Glucose (80-110) mg/dL Lactate 1.2 (0.7-2.1) mmol/L Calcium (8.4-10.2) mg/dL Total Bilirubin (0.2-1.3) mg/dL AST (14-36) IU/L ALT (9-52) IU/L Alkaline Phosphatase (38-126) U/L Total Creatine Kinase 202 H (30-135) U/L CK-MB (CK-2) 6.14 H (<2.37) ng/mL CK-MB (CK-2) Rel Index 3.0 (1.5-5.0) % Troponin I 6.130 H* (0.01-0.034) ng/mL B-Natriuretic Peptide 1360 H (<100) Total Protein (6.3-8.2) g/dL Albumin (3.5-5.0) g/dL Globulin (1.7-4.1) g/dL Albumin/Globulin Ratio (1.0-2.8) // Range/Units 10:12 WBC (4.5-11.0) X10^3/uL RBC (4.0-5.2) X10^6/uL Hgb (12.0-16.0) g/dL Hct (36-46) % MCV (80-100) fL MCH (26-34) PG MCHC (30-36) % RDW (11.6-14.8) % Plt Count (150-400) X10^3/uL Neut % (Auto) (50-75) % Lymph % (Auto) (25-40) % [place] % (Auto) (3-14) % Eos % (Auto) (2-4) % Baso % (Auto) (0-2) % Neut # (Auto) (6043-3184) /uL Lymph # (Auto) (3552-7209) /uL [place] # (Auto) (0-900) /uL Eos # (Auto) (0-450) /uL Baso # (Auto) (0-100) /uL PT 10.7 (10.1-12.7) SECONDS INR 0.9 (0.9-1.3) APTT (26.4-36.2) SECONDS Sodium (137-145) mmol/L Potassium (3.4-5.1) mmol/L Chloride (98-107) mmol/L Carbon Dioxide (22-32) mmol/L BUN (7-17) mg/dL Creatinine (0.52-1.04) mg/dL Estimated GFR (>60) mL/min BUN/Creatinine Ratio (6-22) Glucose (80-110) mg/dL Lactate (0.7-2.1) mmol/L Calcium (8.4-10.2) mg/dL Total Bilirubin (0.2-1.3) mg/dL AST (14-36) IU/L ALT (9-52) IU/L Alkaline Phosphatase (38-126) U/L Total Creatine Kinase (30-135) U/L CK-MB (CK-2) (<2.37) ng/mL CK-MB (CK-2) Rel Index (1.5-5.0) % Troponin I (0.01-0.034) ng/mL B-Natriuretic Peptide (<100) Total Protein (6.3-8.2) g/dL Albumin (3.5-5.0) g/dL Globulin (1.7-4.1) g/dL Albumin/Globulin Ratio (1.0-2.8) Imaging Data Chest x-ray: Radiologist's impression: PROCEDURE: XR CHEST 2V INDICATIONS: shortness of breath TECHNIQUE: 2 views of the chest were acquired. COMPARISON: [facility], CR, CHEST 2VW, 04/02/2015, 11:04. [facility], CR, XR CHEST 2V, 04/29/2019, 18:17. [facility], CT, CT CHEST WO SINAN, 03/20/2016, 7:40. FINDINGS: Surgical changes and devices: None. Lungs and pleura: Bilateral interstitial infiltrates. There is mild pulmonary fibrosis in lower lobes. No pleural effusions or pneumothorax. Mediastinum: Mediastinal contours are normal. Heart size is normal. Bones and chest wall: No suspicious bony abnormalities. Soft tissues appear unremarkable. IMPRESSION: Bilateral interstitial infiltrates and mild pulmonary fibrosis consistent with chronic interstitial lung disease. Dictated by: Duc Gonzalez M.D. on 05/01/2019 at 8:45 ECG Data Attestation: I personally reviewed and interpreted this ECG as follows: Prior ECG tracings: available for review Interpretation: EKG 1.: Sinus rhythm rate [address] depression noted in V6, similar to [address] elevations EKG 2. Sinus rhythm rate 83 similar to prior no ST elevation MDM Narrative Medical decision making narrative: Patient is significantly elevated BNP and difficulty breathing. She is given Lasix which she has urinated with. She is also given nitroglycerin to help with some dice diuresis. She had never point had any chest pain. Troponin came back at critically high at 6.13. She has multiple coronary stents and will require cardiology evaluation with which is not available at [facility]. He was given aspirin and started on heparin drip. Creatinine is also elevated at 2.1 today previously 1.8. Her terrazzo finisher helper is Darin Yoo, at [facility]. Unfortunately [facility] does not have any beds available. Dr. Khanna hospitalist at [facility] as notated on patient's symptoms test results and will happily except patient. I have called her son Primitivo and updated him that she will be transferred to [facility]. Patient has remained stable in the emergency department she has remained chest pain-free. Her breathing has become slightly easier with Lasix and nitroglycerin. Critical Care Time Critical Care Time: Yes Total Critical Care Time: 30 Attestation: The high probability of a clinically significant, sudden or life threatening deterioration of the [cardiovascular] system(s) required my full and direct attention, intervention and personal management. The aggregate critical care time was 30 minutes. This time is in addition to time spent performing reported procedures but includes the following: [x] Data Review and interpretation [x] Patient assessment and monitoring of vital signs [x] Documentation [x] Medication orders and management Discharge Plan Departure Patient Disposition: [facility] Clinical Impression: Acute non-ST elevation myocardial infarction (NSTEMI) CHF (congestive heart failure) Qualifiers: Heart failure type: unspecified Heart failure chronicity: acute on chronic Qualified Code(s): I50.9 - Heart failure, unspecified Discharge Date/Time: 05/01/19 11:32 Interventions: ED Discharge Assessment Last Done: 05/01/19 11:28 Prescriptions: No Action azithromycin 250 mg tablet See Rx Instructions .ROUTE .COMPLEX Qty: 6 RF: 0 prednisone 20 mg tablet 20 mg PO DAILY Qty: 5 RF: 0 furosemide 40 mg tablet 40 mg PO DAILY RF: 0 atorvastatin 40 mg tablet 40 mg PO QPM RF: 0 carvedilol 12.5 mg tablet 12.5 mg PO BID RF: 0 albuterol sulfate 2.5 mg /3 mL (0.083 %) Solution For Nebulization 3 ml inhalation Q6H PRN (Reason: Wheezing) RF: 0 clopidogrel 75 mg Tablet 75 mg PO DAILY RF: 0 amlodipine 5 mg tablet 5 mg PO DAILY RF: 0 aspirin 81 mg Tablet,Delayed Release (Dr/Ec) 81 mg PO DAILY RF: 0 potassium chloride 20 mEq Tablet,Er Particles/Crystals 20 meq PO DAILY RF: 0 buspirone 7.5 mg Tablet 7.5 mg PO TID RF: 0 losartan 100 mg tablet 100 mg PO DAILY RF: 0 Lantus Solostar U-100 Insulin 100 unit/mL (3 mL) insulin pen 31 units subcut BID RF: 0
[2019-05-01 08:20] LABS: Add Manual Diff / Slide Review NO; Basophils Absolute Auto 0 /uL (0-100); Basophils Percent Auto 0.3 % (0-2); Eosinophils Absolute Auto 0 /uL (0-450); Eosinophils Percent Auto 0.3 % (2-4); Hematocrit 36.5 % (36-46); Hemoglobin 12.4 g/dL (12.0-16.0); Lymphocytes Absolute Auto 800 /uL (1100-4500); Lymphocytes Percent Auto 13.4 % (25-40); Mean Corpuscular HGB Conc 33.9 % (30-36); Mean Corpuscular Hemoglobin 29.3 PG (26-34); Mean Corpuscular Volume 86.5 fL (80-100); Monocytes Absolute Auto 400 /uL (0-900); Monocytes Percent Auto 6.8 % (3-14); Neutrophils Absolute Auto 5000 /uL (1500-7000); Neutrophils Percent Auto 79.2 % (50-75); Platelet Count 150 X10^3/uL (150-400); Red Blood Cell Count 4.22 X10^6/uL (4.0-5.2); Red Cell Distribution Width 14.7 % (11.6-14.8); White Blood Cell Count 6.3 X10^3/uL (4.5-11.0)
[2019-05-01 08:24] LABS: Creatine Kinase 202 U/L (30-135); Lactate (Lactic Acid) 1.2 mmol/L (0.7-2.1)
[2019-05-01 08:25] LABS: Alanine Aminotransferase 21 IU/L (9-52); Albumin 3.2 g/dL (3.5-5.0); Alkaline Phosphatase 131 U/L (38-126); Aspartate Aminotransferase 28 IU/L (14-36); BUN Creatinine Ratio 18.6 (6-22); Bilirubin Total 0.4 mg/dL (0.2-1.3); Blood Urea Nitrogen 39 mg/dL (7-17); Calcium 8.6 mg/dL (8.4-10.2); Carbon Dioxide 23 mmol/L (22-32); Chloride 102 mmol/L (98-107); Estimated Glomerular Filt Rate 22.8 mL/min (>60); Globulin 3.1 g/dL (1.7-4.1); Glucose 398 mg/dL (80-110); HEMOLYSIS < 15 (0-50); Potassium 3.9 mmol/L (3.4-5.1); Sodium 135 mmol/L (137-145); Total Protein 6.3 g/dL (6.3-8.2)
[2019-05-01] MEDS: FUROSEMIDE 40 MG/4 ML VIAL IV (08:32)
[2019-05-01 08:35] LABS: B Type Natriuretic Peptide 1360 (<100)
[2019-05-01 08:39] LABS: Creatine Kinase MB 6.14 ng/mL (<2.37)
[2019-05-01 09:22] LABS: PTT Partial Thromboplastin Tim 28 SECONDS (26.4-36.2)
[2019-05-01] MEDS: NITROGLYCERIN 0.4 MG SL TAB SL (09:29)
[2019-05-01] MEDS: ASPIRIN 81 MG TAB 324 MG PO (09:29)
[2019-05-01] MEDS: HEPARIN DRIP 25,000 UNIT/500 ML IV.SOLN 19.488 UNIT IV (09:52)
[2019-05-01] MEDS: HEPARIN 5,000 UNIT/ML VIAL 5000 UNIT IV (09:53)
[2019-05-01 10:21] LABS: INR 0.9 (0.9-1.3); Prothrombin Time 10.7 SECONDS (10.1-12.7)
== END 2019-05-01 11:32 | disposition short-term general hospital (02) ==
PROVIDERS: Emergency Provider Emergency Medicine
DX: I21.4 Non-ST elevation (NSTEMI) myocardial infarction (principal); I50.9 Heart failure, unspecified
CPT/HCPCS: 36591; 71046; 80053; 82550; 82553; 83605; 83880; 84484; 85025; 85610; 85730; 93005; 94150; 94640; 96365; 96375; 96376; 99285; J1644; J1940

== ENCOUNTER 2019-05-18 11:52 | Emergency (ER) | payer MEDICARE, SELFPAY ==
--- NOTE | 2019-05-18 11:59 | DI.RAD.S_ITS ---
PROCEDURE: XR CHEST 1V INDICATIONS: SOB TECHNIQUE: One view of the chest was acquired. COMPARISON: [facility], CR, XR CHEST 2V, 05/01/2019, 8:11. FINDINGS: Surgical changes and devices: None. Lungs and pleura: Prominent perihilar interstitial markings are significantly less pronounced when compared to the prior study. There may be areas of mild pulmonary consolidation at the diaphragms, bilaterally. No lobar consolidation or pneumothorax is evident. No large effusion is appreciated. Mediastinum: Mediastinal contours appear normal. Heart size is mildly enlarged. There is aortic atherosclerosis. Bones and chest wall: No suspicious bony lesions. Overlying soft tissues appear unremarkable. IMPRESSION: 1. Mild cardiomegaly with associated mild pulmonary vascular congestion/edema. 2. Probable bibasilar atelectasis. Dictated by: Nam Clark M.D. on 05/18/2019 at 12:41 Approved by: Nam Clark M.D. on 05/18/2019 at 12:42
[2019-05-18 12:02] VITALS: BP 128/41; PULSE 66; RESP 14; TEMP 36.3; O2SAT 98
--- NOTE | 2019-05-18 12:08 | ED_ITS ---
HPI - Neuro Symptoms/Deficit General Chief Complaint: Neuro Symptoms/Deficit Stated Complaint: Weakness, numbness Time Seen by Provider: 05/18/19 11:52 Source: patient and EMS Mode of arrival: EMS Limitations: no limitations History of Present Illness HPI Narrative: 78-year-old female smoker with extensive cardiac and vascular history presents by EMS for evaluation of generalized all over body tingling this morning which resolved prior to her arrival. By the time she got here she felt completely fine and well. She denies any dizziness, weakness or lightheadedness. She denies chest pain or shortness of breath. She has had no nausea, vomiting or diarrhea. She denies other cardiac equivalent such as significant fatigue or dyspnea. She recently was at an outside facility and there were considerations of cardiac stent however apparently she had poor renal function and was not a candidate Onset (ago): hour(s) History of same: No Severity: mild Quality: tingling Relieving factors: none Exacerbating factors: none Context: sudden onset On Anticoagulants: No Associated symptoms: denies other symptoms Treatments Prior to Arrival: none Related Data Home Medications Medication Instructions Recorded Confirmed albuterol sulfate 3 ml INHALATION Q6H PRN 05/01/19 05/01/19 amlodipine 5 mg PO DAILY 05/01/19 05/01/19 aspirin 81 mg PO DAILY 05/01/19 05/01/19 atorvastatin 40 mg PO QPM 05/01/19 05/01/19 buspirone 7.5 mg PO TID 05/01/19 05/01/19 carvedilol 12.5 mg PO BID 05/01/19 05/01/19 clopidogrel 75 mg PO DAILY 05/01/19 05/01/19 furosemide 40 mg PO DAILY 05/01/19 05/01/19 insulin glargine [Lantus Solostar 31 units SUBCUT BID 05/01/19 05/01/19 U-100 Insulin] losartan 100 mg PO DAILY 05/01/19 05/01/19 potassium chloride 20 meq PO DAILY 05/01/19 05/01/19 Previous Rx's Medication Instructions Recorded azithromycin See Rx Instructions .ROUTE 04/29/19 .COMPLEX #6 tab prednisone 20 mg PO DAILY #5 tab 04/29/19 Allergies Allergy/AdvReac Type Severity Reaction Status Date / Time No Known Drug Allergies Allergy Verified 05/01/19 07:43 Review of Systems Constitutional Denies chills, Denies fever(s), Denies lethargy and Denies weakness Eyes Denies change in vision, Denies eye discharge, Denies irritation and Denies loss of vision ENT Ears, Nose, Mouth, and Throat: Denies change in voice, Denies neck pain and De nies sore throat Cardiovascular Denies chest pain, Denies irregular heart rhythm, Denies lightheadedness, Denies palpitations, Denies dyspnea, Denies dyspnea on exertion and Denies orthopnea Respiratory Denies cough, Denies dyspnea, Denies dyspnea on exertion and Denies wheezing Gastrointestinal Gastrointestinal: Denies abdominal pain, Denies change in bowel habits, Denies diarrhea, Denies nausea and Denies vomiting Genitourinary Denies hematuria, Denies flank pain, Denies urinary incontinence and Denies urinary urgency Musculoskeletal Denies neck pain Integumentary/Breasts Denies pruritus, Denies erythema, Denies rash and Denies wounds Neurologic Denies confusion, Denies loss of vision and Denies weakness Psychiatric Denies anxiety, Denies confusion, Denies depression, Denies homicidal ideation and Denies suicidal ideation Endocrine Denies palpitations Hematologic/Lymphatic Denies easy bruising Allergic/Immunologic Denies wheezing [facility] Medical History CHF (congestive heart failure) (Acute) COPD (chronic obstructive pulmonary disease) (Acute) Coronary artery disease (Acute) Social History Smoking Status: Current every day smoker Social History Smoking Status: Current every day smoker Exam Narrative Exam Narrative: GENERAL: [78-year-old] patient appears stated age. Well- nourished, well-developed patient, in mild distress. Occasional dry cough HEAD: Atraumatic. Normocephalic. EYES: Pupils equal round and reactive. Extraocular motions intact. No scleral icterus. No injection or drainage. ENT: Nose without bleeding, purulent drainage. Throat without erythema, tonsillar hypertrophy or exudate. Airway patent. NECK: Trachea midline. Non tender CARDIOVASCULAR: Regular rate and rhythm without murmurs, gallops, or rubs. RESPIRATORY: Decreased breath sounds bilaterally with prolonged expiratory phase GASTROINTESTINAL: Abdomen soft, non-tender, nondistended. EXTREMITIES: No edema or joint tenderness. BACK: Nontender without deformity or crepitance. No flank tenderness. NEURO: AOx3. SKIN: No rash or erythema of visible areas Initial Vital Signs Initial Vital Signs: Vital Signs Temperature 97.3 F L 05/18/19 12:02 Pulse Rate 66 05/18/19 12:02 Respiratory Rate 14 05/18/19 12:02 Blood Pressure 128/41 L 05/18/19 12:02 Pulse Oximetry 98 05/18/19 12:02 Course Orders Ordered: ED Orders 05/18/19 11:59 XR chest 1V Stat EKG-12 Lead Stat 05/18/19 12:00 B Type Natriuretic Peptide Stat Basic Metabolic Panel Stat Complete Blood Count AUTO DIFF Stat Troponin I Stat 05/18/19 12:10 Troponin I Stat 05/18/19 15:23 Urine Microscopic Stat Vital Signs - 8 hr 05/18/19 12:02 05/18/19 13:00 05/18/19 14:01 Temperature 97.3 F L Pulse Rate 66 68 64 Respiratory Rate 14 21 15 Blood Pressure 128/41 L Blood Pressure [Right Arm] 129/52 L 140/55 L Pulse Oximetry 98 96 94 05/18/19 15:02 Temperature Pulse Rate 75 Respiratory Rate 21 Blood Pressure Blood Pressure [Right Arm] 142/48 H Pulse Oximetry 97 MDM - Neuro Symptoms/Deficit Lab Data Result diagrams: 05/18/19 12:00 05/18/19 12:00 Lab Results 05/18/19 05/18/19 05/18/19 Range/Units 12:00 12:00 12:00 WBC 6.8 (4.5-11.0) X10^3/uL RBC 3.73 L (4.0-5.2) X10^6/uL Hgb 10.9 L (12.0-16.0) g/dL Hct 32.6 L (36-46) % MCV 87.5 (80-100) fL MCH 29.3 (26-34) PG MCHC 33.4 (30-36) % RDW 15.5 H (11.6-14.8) % Plt Count 141 L (150-400) X10^3/uL Neut % (Auto) 78.2 H (50-75) % Lymph % (Auto) 14.3 L (25-40) % [place] % (Auto) 5.5 (3-14) % Eos % (Auto) 1.2 L (2-4) % Baso % (Auto) 0.8 (0-2) % Neut # (Auto) 5300 (2309-2376) /uL Lymph # (Auto) 1000 L (5730-3034) /uL [place] # (Auto) 400 (0-900) /uL Eos # (Auto) 100 (0-450) /uL Baso # (Auto) 100 (0-100) /uL Sodium 138 (137-145) mmol/L Potassium 4.5 (3.4-5.1) mmol/L Chloride 109 H (98-107) mmol/L Carbon Dioxide 21 L (22-32) mmol/L BUN 43 H (7-17) mg/dL Creatinine 2.10 H (0.52-1.04) mg/dL Estimated GFR 22.8 L (>60) mL/min BUN/Creatinine Ratio 20.5 (6-22) Glucose 122 H (80-110) mg/dL Calcium 8.5 (8.4-10.2) mg/dL Troponin I 0.016 (0.01-0.034) ng/mL B-Natriuretic Peptide 398 H (<100) Urine RBC (0-5/HPF) Urine WBC (0-5/HPF) Ur Squamous Epith Cells (0-5/HPF) Urine Bacteria (None) Ur Culture Indicated? 05/18/19 05/18/19 Range/Units 12:10 15:23 WBC (4.5-11.0) X10^3/uL RBC (4.0-5.2) X10^6/uL Hgb (12.0-16.0) g/dL Hct (36-46) % MCV (80-100) fL MCH (26-34) PG MCHC (30-36) % RDW (11.6-14.8) % Plt Count (150-400) X10^3/uL Neut % (Auto) (50-75) % Lymph % (Auto) (25-40) % [place] % (Auto) (3-14) % Eos % (Auto) (2-4) % Baso % (Auto) (0-2) % Neut # (Auto) (8077-7992) /uL Lymph # (Auto) (9319-6849) /uL [place] # (Auto) (0-900) /uL Eos # (Auto) (0-450) /uL Baso # (Auto) (0-100) /uL Sodium (137-145) mmol/L Potassium (3.4-5.1) mmol/L Chloride (98-107) mmol/L Carbon Dioxide (22-32) mmol/L BUN (7-17) mg/dL Creatinine (0.52-1.04) mg/dL Estimated GFR (>60) mL/min BUN/Creatinine Ratio (6-22) Glucose (80-110) mg/dL Calcium (8.4-10.2) mg/dL Troponin I < 0.012 (0.01-0.034) ng/mL B-Natriuretic Peptide (<100) Urine RBC 0-1/hpf (0-5/HPF) Urine WBC 1-5/hpf (0-5/HPF) Ur Squamous Epith Cells 5-10 /hpf H (0-5/HPF) Urine Bacteria Occasional (0-1) (None) Ur Culture Indicated? Cult not indicated Urine Dip Bedside Urine Glucose 100 mg/dl Bedside Urine Bilirubin - Negative Bedside Urine Ketone - Negative Urine Specific [place] 1.020 Bedside Urine Occult Blood +/- Bedside Urine pH 5.5 Bedside Urine Protein +++ 300 Bedside Urine Urobilinogen - Negative Bedside Urine Nitrite - Negative Bedside Urine Leukocytes - Negative Esterase ECG Data Attestation: I personally reviewed and interpreted this ECG as follows: Prior ECG tracings: available for review Interpretation: Normal sinus rhythm, rate 65, mild interventricular conduction delay. No ST segmental elevation or depression Discharge Plan Departure Patient Disposition: Home Clinical Impression: Feared complaint without diagnosis Discharge Date/Time: 05/18/19 15:22 Interventions: ED Discharge Assessment Last Done: 05/18/19 15:21 Activity Restrictions/Additional Instructions: *You have been diagnosed with [brief episode of full body tingling, resolved] *What to do: *Take medications as directed *Follow up with your primary care provider in 2-3 days, call for an appointment. Let them know you were seen in the Emergency Department and that we ask that you be seen in follow up *Return to ER if you should have any new, worsening or concerning symptoms Prescriptions: No Action azithromycin 250 mg tablet See Rx Instructions .ROUTE .COMPLEX Qty: 6 RF: 0 prednisone 20 mg tablet 20 mg PO DAILY Qty: 5 RF: 0 furosemide 40 mg tablet 40 mg PO DAILY RF: 0 atorvastatin 40 mg tablet 40 mg PO QPM RF: 0 carvedilol 12.5 mg tablet 12.5 mg PO BID RF: 0 albuterol sulfate 2.5 mg /3 mL (0.083 %) Solution For Nebulization 3 ml inhalation Q6H PRN (Reason: Wheezing) RF: 0 clopidogrel 75 mg Tablet 75 mg PO DAILY RF: 0 amlodipine 5 mg tablet 5 mg PO DAILY RF: 0 aspirin 81 mg Tablet,Delayed Release (Dr/Ec) 81 mg PO DAILY RF: 0 potassium chloride 20 mEq Tablet,Er Particles/Crystals 20 meq PO DAILY RF: 0 buspirone 7.5 mg Tablet 7.5 mg PO TID RF: 0 losartan 100 mg tablet 100 mg PO DAILY RF: 0 [place] Solamberar U-100 Insulin 100 unit/mL (3 mL) insulin pen 31 units subcut BID RF: 0
--- NOTE | 2019-05-18 12:11 | PC.NURSE ---
Pt experienced sudden onset of total body numbness after eating a peanut butter sandwich. Medics were called. States symptoms gone when medics arrived. Pt states all symptoms have now resolved and she feels better than when she woke up this morning. Pt normally has SOB and difficulty breathing however denies these concerns at this time. No CP or any Symptoms at this time.
[2019-05-18 12:12] LABS: Add Manual Diff / Slide Review NO; Basophils Absolute Auto 100 /uL (0-100); Basophils Percent Auto 0.8 % (0-2); Eosinophils Absolute Auto 100 /uL (0-450); Eosinophils Percent Auto 1.2 % (2-4); Hematocrit 32.6 % (36-46); Hemoglobin 10.9 g/dL (12.0-16.0); Lymphocytes Absolute Auto 1000 /uL (1100-4500); Lymphocytes Percent Auto 14.3 % (25-40); Mean Corpuscular HGB Conc 33.4 % (30-36); Mean Corpuscular Hemoglobin 29.3 PG (26-34); Mean Corpuscular Volume 87.5 fL (80-100); Monocytes Absolute Auto 400 /uL (0-900); Monocytes Percent Auto 5.5 % (3-14); Neutrophils Absolute Auto 5300 /uL (1500-7000); Neutrophils Percent Auto 78.2 % (50-75); Platelet Count 141 X10^3/uL (150-400); Red Blood Cell Count 3.73 X10^6/uL (4.0-5.2); Red Cell Distribution Width 15.5 % (11.6-14.8); White Blood Cell Count 6.8 X10^3/uL (4.5-11.0)
[2019-05-18 12:21] LABS: BUN Creatinine Ratio 20.5 (6-22); Blood Urea Nitrogen 43 mg/dL (7-17); Calcium 8.5 mg/dL (8.4-10.2); Carbon Dioxide 21 mmol/L (22-32); Chloride 109 mmol/L (98-107); Estimated Glomerular Filt Rate 22.8 mL/min (>60); Glucose 122 mg/dL (80-110); Potassium 4.5 mmol/L (3.4-5.1); Sodium 138 mmol/L (137-145)
[2019-05-18 12:22] LABS: HEMOLYSIS 52 (0-50)
[2019-05-18 12:26] LABS: B Type Natriuretic Peptide 398 (<100)
[2019-05-18 12:33] LABS: Troponin I 0.016 ng/mL (0.01-0.034)
[2019-05-18 13:00] VITALS: BP 129/52; PULSE 68; RESP 21; O2SAT 96
[2019-05-18 14:01] VITALS: BP 140/55; PULSE 64; RESP 15; O2SAT 94
[2019-05-18 14:40] LABS: Troponin I < 0.012 ng/mL (0.01-0.034)
[2019-05-18 15:02] VITALS: BP 142/48; PULSE 75; RESP 21; O2SAT 97
[2019-05-18 15:38] LABS: Bacteria Urine Occasional (0-1); Culture Indicated Urine Cult Not Indicated; RBC Urine 0-1/HPF (0-5/HPF); Squamous Epithelial Cell Urine 5-10 /HPF (0-5/HPF); WBC Urine 1-5/HPF (0-5/HPF)
== END 2019-05-18 15:22 | disposition home or self-care (01) ==
PROVIDERS: Emergency Provider Emergency Medicine
DX: R20.2 Paresthesia of skin (principal); I50.9 Heart failure, unspecified; Z71.1 Person with feared health complaint in whom no diagnosis is made
CPT/HCPCS: 36415; 71045; 80048; 81003; 81015; 83880; 84484; 85025; 93005; 93010; 99283; 99285

== ENCOUNTER 2019-10-08 12:22 | Emergency (ER) | payer MEDICARE, SELFPAY ==
[2019-10-08 12:33] VITALS: BP 131/57; PULSE 68; RESP 18; TEMP 36.6; O2SAT 98; BMI 31.1
--- NOTE | 2019-10-08 12:42 | ED.GENADULT ---
HPI - General Adult General Chief complaint: Diabetic Problem Stated complaint: Blood sugar is high, out of insulin Time Seen by Provider: 10/08/19 12:37 Source: patient Mode of arrival: Ambulatory Limitations: no limitations History of Present Illness HPI narrative: This is a 78-year-old female who comes to the emergency department with complaint of elevated blood sugar. Patient states she typically runs in the 200 range this morning she was 400. She states because of the holidays she'd run out of Lantus. She normally does 31 units twice daily, last night she used her last 10 units for her evening dose and was then out of insulin. 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 Patient states that she hasn't been having any new symptoms. She does have a history of STEMI. She states that she has not had chest pain, no shortness of breath, no lightheadedness, no nausea or vomiting. She states she does urinate frequently but this is not new for her. She denies any GI issues. She states she typically picks up about 5 pens which last her a little over a month. Related Data Home Medications Medication Instructions Recorded Confirmed albuterol sulfate 3 ml INHALATION Q6H PRN 05/01/19 05/01/19 amlodipine 5 mg PO DAILY 05/01/19 05/01/19 aspirin 81 mg PO DAILY 05/01/19 05/01/19 atorvastatin 40 mg PO QPM 05/01/19 05/01/19 buspirone 7.5 mg PO TID 05/01/19 05/01/19 carvedilol 12.5 mg PO BID 05/01/19 05/01/19 clopidogrel 75 mg PO DAILY 05/01/19 05/01/19 furosemide 40 mg PO DAILY 05/01/19 05/01/19 insulin glargine [Lantus Solostar 31 units SUBCUT BID 05/01/19 05/01/19 U-100 Insulin] losartan 100 mg PO DAILY 05/01/19 05/01/19 potassium chloride 20 meq PO DAILY 05/01/19 05/01/19 Previous Rx's Medication Instructions Recorded azithromycin See Rx Instructions .ROUTE 04/29/19 .COMPLEX #6 tab prednisone 20 mg PO DAILY #5 tab 04/29/19 insulin glargine [Lantus Solostar 31 unit SUBCUT BID #15 ml 10/08/19 U-100 Insulin] Allergies Allergy/AdvReac Type Severity Reaction Status Date / Time No Known Drug Allergies Allergy Verified 05/01/19 07:43 Review of Systems Review of Systems ROS Unobtainable: All systems reviewed & are unremarkable except as noted in HPI and below Patient History Medical History CHF (congestive heart failure) (Acute) COPD (chronic obstructive pulmonary disease) (Acute) Coronary artery disease (Acute) Social History Smoking Status: Current every day smoker Smoking Status: Current every day smoker alcohol intake frequency: 0-2 drinks per day Substance Use Type: does not use Exam Narrative Exam Narrative: GENERAL: Alert and oriented x three, obese, well-appearing female in mild distress. HEENT: Head normocephalic, atraumatic, EOMI, pupils reactive, face symmetric, moist mucous membranes NECK: Supple, full range of motion CARDIOVASCULAR: Regular rate and rhythm without murmurs, rubs or gallops. RESPIRATORY: Breath sounds equal bilaterally, no wheezes rales or rhonchi. ABDOMEN: Soft, nontender. Normoactive bowel sounds all 4 quadrants. No guarding or rebound, rigidity, no mass : No CVA tenderness EXTREMITIES: Normal range of motion, no clubbing or edema. Neurovascularly intact NEUROLOGICAL: Cranial nerves II through XII grossly intact. Moving all extremities SKIN: Warm, dry, no petechiae, no rashes or lesions. Initial Vital Signs Initial Vital Signs: Vital Signs Temperature 97.9 F 10/08/19 12:33 Pulse Rate 68 10/08/19 12:33 Respiratory Rate 18 10/08/19 12:33 Blood Pressure 131/57 L 10/08/19 12:33 Pulse Oximetry 98 10/08/19 12:33 Course Orders Ordered: ED Orders 10/08/19 12:58 Basic Metabolic Panel Stat Complete Blood Count AUTO DIFF Stat Ketones (Beta-Hydroxybutyrate) Stat Discontinued Medications Sodium Chloride (Normal Saline 0.9%) 1,000 mls @ 500 mls/hr IV BOLUS ONE Stop: 10/08/19 14:52 Last Infusion: 10/08/19 13:46 Dose: 0 mls/hr Documented by: Admin: 10/08/19 13:09 Dose: 500 mls/hr Documented by: BLANCA Insulin Glargine (Lantus (Vial)) 31 unit SUBCUT NOW ONE Stop: 10/08/19 12:54 Last Admin: 10/08/19 13:21 Dose: Not Given Documented by: FARIDA Insulin Glargine (Lantus Solostar (Pen)) 31 unit SUBCUT NOW ONE Stop: 10/08/19 13:16 Last Admin: 10/08/19 13:14 Dose: 31 unit Documented by: BLANCA Cosigned by: FARIDA Vital Signs Vital signs: Vital Signs - 8 hr 10/08/19 12:33 10/08/19 13:00 10/08/19 13:58 Temperature 97.9 F Pulse Rate 68 62 67 Respiratory Rate 18 19 16 Blood Pressure 131/57 L Blood Pressure [Right Arm] 112/50 L 111/92 H Pulse Oximetry 98 93 97 Medical Decision Making Lab Data Result diagrams: 10/08/19 12:58 10/08/19 12:58 Labs: Lab Results 10/08/19 10/08/19 Range/Units 12:58 12:58 WBC 5.1 (4.5-11.0) X10^3/uL RBC 3.90 L (4.0-5.2) X10^6/uL Hgb 11.2 L (12.0-16.0) g/dL Hct 33.0 L (36-46) % MCV 84.7 (80-100) fL MCH 28.8 (26-34) PG MCHC 34.0 (30-36) % RDW 16.0 H (11.6-14.8) % Plt Count 117 L (150-400) X10^3/uL Neut % (Auto) 69.0 (50-75) % Lymph % (Auto) 19.7 L (25-40) % [place] % (Auto) 8.7 (3-14) % Eos % (Auto) 1.5 L (2-4) % Baso % (Auto) 1.1 (0-2) % Neut # (Auto) 3500 (2103-1586) /uL Lymph # (Auto) 1000 L (7050-2241) /uL [place] # (Auto) 400 (0-900) /uL Eos # (Auto) 100 (0-450) /uL Baso # (Auto) 100 (0-100) /uL Sodium 139 (137-145) mmol/L Potassium 4.4 (3.4-5.1) mmol/L Chloride 107 (98-107) mmol/L Carbon Dioxide 24 (22-32) mmol/L BUN 49 H (7-17) mg/dL Creatinine 2.70 H (0.52-1.04) mg/dL Estimated GFR 17.1 L (>60) mL/min BUN/Creatinine Ratio 18.1 (6-22) Glucose 196 H (80-110) mg/dL Calcium 8.7 (8.4-10.2) mg/dL Ketones 0.06 (<0.27) mmol/L Urine Dip Bedside Urine Glucose 100 mg/dl Bedside Urine Bilirubin - Negative Bedside Urine Ketone - Negative Urine Specific [place] 1.015 Bedside Urine Occult Blood - Negative Bedside Urine pH 6.0 Bedside Urine Protein +++ 300 Bedside Urine Urobilinogen - Negative Bedside Urine Nitrite - Negative Bedside Urine Leukocytes - Negative Esterase Point of care testing: Urine Dip Bedside Urine Glucose 100 mg/dl Bedside Urine Bilirubin - Negative Bedside Urine Ketone - Negative Urine Specific [place] 1.015 Bedside Urine Occult Blood - Negative Bedside Urine pH 6.0 Bedside Urine Protein +++ 300 Bedside Urine Urobilinogen - Negative Bedside Urine Nitrite - Negative Bedside Urine Leukocytes - Negative Esterase MDM Narrative Medical decision making narrative: Patient given home dose here. Given some fluids but not aggressively as she does have a cardiac history. Also given her usual am dose of Lantus of 31units which she has not had today. Patient does not use short acting insulin at home. Labs show patient's creatinine. Her last was 2.1 in May of 2019 and today is 2.7, 2.1 and appears closer to her baseline. I don't have any between May and now for comparison. BUN is elevated at 49 but was 43 in May of 2019 with no electrolyte abnormalities. Glucose is 196 with a hemoglobin of 11 which appears close to baseline no elevation in white count. Patient does not have any ketones. Platelets are little bit low at 117. Patient given prescription for lantus to fill at [facility] or [facility] which are both open today. Patient was concerned because she has dropped off the other prescription and that she might be charged. We discussed that if she does not knot picker cloth the prescription at [facility] she will not be charged and she can even calm let them know that she does not need to fill that prescription this month. Discharge Plan Departure Patient Disposition: Home Clinical Impression: Elevated creatine kinase, Encounter for medication refill Discharge Date/Time: 10/08/19 14:16 Instructions: DI for Hyperglycemia -- Adult Activity Restrictions/Additional Instructions: Follow up with your primary care in the next week for recheck and to re-evaluate your kidney function. Continue to monitor your sugars. Your glucose in the ER today was 196. Your creatinine is elevated compared to the last ER visit in May 2019. I would recommend follow up with your primary care for recheck of your kidney function in the next week. [facility] today, they are both open at this time. Return to ER for fevers, altered mental status, new chest pain, shortness of breath, persistent vomiting, passing out, lightheadedness, swelling in your extremities new rashes or skin changes, or other new or concerning symptoms Prescriptions: New Lantus Solostar U-100 Insulin 100 unit/mL (3 mL) insulin pen 31 unit SUBCUT BID Qty: 15 RF: 0 No Action azithromycin 250 mg tablet See Rx Instructions .ROUTE .COMPLEX Qty: 6 RF: 0 prednisone 20 mg tablet 20 mg PO DAILY Qty: 5 RF: 0 furosemide 40 mg tablet 40 mg PO DAILY RF: 0 atorvastatin 40 mg tablet 40 mg PO QPM RF: 0 carvedilol 12.5 mg tablet 12.5 mg PO BID RF: 0 albuterol sulfate 2.5 mg /3 mL (0.083 %) Solution For Nebulization 3 ml inhalation Q6H PRN (Reason: Wheezing) RF: 0 clopidogrel 75 mg Tablet 75 mg PO DAILY RF: 0 amlodipine 5 mg tablet 5 mg PO DAILY RF: 0 aspirin 81 mg Tablet,Delayed Release (Dr/Ec) 81 mg PO DAILY RF: 0 potassium chloride 20 mEq Tablet,Er Particles/Crystals 20 meq PO DAILY RF: 0 buspirone 7.5 mg Tablet 7.5 mg PO TID RF: 0 losartan 100 mg tablet 100 mg PO DAILY RF: 0 Lantus Solostar U-100 Insulin 100 unit/mL (3 mL) insulin pen 31 units subcut BID RF: 0
[2019-10-08 13:00] VITALS: BP 112/50; PULSE 62; RESP 19; O2SAT 93
--- NOTE | 2019-10-08 13:03 | PC.NURSE ---
pt reports usual dose lantus 31units BID (am/pm). only had 10 units last night. 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 reports gluocse over 400 this morning. IV placed and labs drawn. plan to given AM dose and RX to pickup at different pharm that is open today
[2019-10-08 13:05] LABS: Add Manual Diff / Slide Review NO; Basophils Absolute Auto 100 /uL (0-100); Basophils Percent Auto 1.1 % (0-2); Eosinophils Absolute Auto 100 /uL (0-450); Eosinophils Percent Auto 1.5 % (2-4); Hemoglobin 11.2 g/dL (12.0-16.0); Lymphocytes Absolute Auto 1000 /uL (1100-4500); Lymphocytes Percent Auto 19.7 % (25-40); Mean Corpuscular Hemoglobin 28.8 PG (26-34); Mean Corpuscular Volume 84.7 fL (80-100); Monocytes Absolute Auto 400 /uL (0-900); Monocytes Percent Auto 8.7 % (3-14); Neutrophils Absolute Auto 3500 /uL (1500-7000); Platelet Count 117 X10^3/uL (150-400); White Blood Cell Count 5.1 X10^3/uL (4.5-11.0)
[2019-10-08] MEDS: SODIUM CHLORIDE 0.9% 1,000 ML 500 ML IV (13:09)
[2019-10-08] MEDS: INSULIN GLARGINE 100 UNIT/ML 3ML PEN 31 UNIT SUBCUT (13:14)
[2019-10-08 13:19] LABS: HEMOLYSIS < 15 (0-50)
[2019-10-08 13:25] LABS: BUN Creatinine Ratio 18.1 (6-22); Blood Urea Nitrogen 49 mg/dL (7-17); Calcium 8.7 mg/dL (8.4-10.2); Carbon Dioxide 24 mmol/L (22-32); Chloride 107 mmol/L (98-107); Estimated Glomerular Filt Rate 17.1 mL/min (>60); Glucose 196 mg/dL (80-110); Potassium 4.4 mmol/L (3.4-5.1); Sodium 139 mmol/L (137-145)
[2019-10-08 13:40] LABS: Ketones (Beta-Hydroxybutyrate) 0.06 mmol/L (<0.27)
--- NOTE | 2019-10-08 13:47 | PC.NURSE ---
500ml saline infused, bolus discontinued per dr orourke
--- NOTE | 2019-10-08 13:50 | PC.NURSE ---
pt ambulating to bathroom for urine sample
[2019-10-08 13:58] VITALS: BP 111/92; PULSE 67; RESP 16; O2SAT 97
== END 2019-10-08 14:16 | disposition home or self-care (01) ==
PROVIDERS: Emergency Provider Emergency Medicine
DX: Z76.0 Encounter for issue of repeat prescription (principal); E11.649 Type 2 diabetes mellitus with hypoglycemia without coma; R94.4 Abnormal results of kidney function studies; Z79.4 Long term (current) use of insulin
CPT/HCPCS: 36415; 80048; 81003; 82009; 85025; 96360; 96372; 99284

== ENCOUNTER → 2019-10-20 09:46 | Outpatient (CLI) | payer MEDICARE, SELFPAY ==
[2019-10-20 11:13] LABS: Alanine Aminotransferase 25 IU/L (<35); Albumin 3.3 g/dL (3.5-5.0); Albumin Globulin Ratio 1.3 (1.0-2.8); Alkaline Phosphatase 80 U/L (38-126); Aspartate Aminotransferase 20 IU/L (14-36); BUN Creatinine Ratio 15.4 (6-22); Bilirubin Total 0.3 mg/dL (0.2-1.3); Blood Urea Nitrogen 40 mg/dL (7-17); Calcium 8.5 mg/dL (8.4-10.2); Carbon Dioxide 21 mmol/L (22-32); Chloride 106 mmol/L (98-107); Estimated Glomerular Filt Rate 17.8 mL/min (>60); Globulin 2.5 g/dL (1.7-4.1); Glucose 149 mg/dL (80-110); HEMOLYSIS < 15 (0-50); Potassium 3.9 mmol/L (3.4-5.1); Sodium 137 mmol/L (137-145); Total Protein 5.8 g/dL (6.3-8.2)
== END ==
PROVIDERS: Visit Provider Internal Medicine Nephrology
DX: N18.4 Chronic kidney disease, stage 4 (severe) (principal)
CPT/HCPCS: 36415; 80053

== ENCOUNTER → 2019-12-16 15:00 | Outpatient (CLI) | payer MEDICARE, SELFPAY ==
[2019-12-16 18:03] LABS: Alanine Aminotransferase 19 IU/L (<35); Albumin Globulin Ratio 1.3 (1.0-2.8); Alkaline Phosphatase 85 U/L (38-126); Aspartate Aminotransferase 18 IU/L (14-36); BUN Creatinine Ratio 19.5 (6-22); Bilirubin Total 0.4 mg/dL (0.2-1.3); Bilirubin Unconjugated 0.3 mg/dL (0.0-1.1); Blood Urea Nitrogen 53 mg/dL (7-17); Calcium 9.3 mg/dL (8.4-10.2); Carbon Dioxide 25 mmol/L (22-32); Chloride 105 mmol/L (98-107); Estimated Glomerular Filt Rate 16.9 mL/min (>60); Globulin 3.2 g/dL (1.7-4.1); Glucose 185 mg/dL (80-110); HEMOLYSIS < 15 (0-50); Potassium 4.3 mmol/L (3.4-5.1); Sodium 138 mmol/L (137-145); Total Protein 7.2 g/dL (6.3-8.2)
[2019-12-16 18:22] LABS: Vitamin D 25 Hydroxy (D3) 33.9 ng/mL (30.0-100.0)
== END ==
PROVIDERS: PCP Family Medicine; Referring Provider Internal Medicine Nephrology; Visit Provider Internal Medicine Nephrology
DX: N18.4 Chronic kidney disease, stage 4 (severe) (principal)
CPT/HCPCS: 36415; 80053; 80076; 82306

== ENCOUNTER → 2020-01-26 12:39 | Outpatient (CLI) | payer MEDICARE, SELFPAY ==
[2020-01-26 13:33] LABS: Add Manual Diff / Slide Review NO; Basophils Absolute Auto 0 /uL (0-100); Basophils Percent Auto 0.7 % (0-2); Eosinophils Absolute Auto 100 /uL (0-450); Eosinophils Percent Auto 1.1 % (2-4); Hematocrit 33.7 % (36-46); Hemoglobin 11.5 g/dL (12.0-16.0); Lymphocytes Absolute Auto 1100 /uL (1100-4500); Lymphocytes Percent Auto 24.6 % (25-40); Mean Corpuscular Hemoglobin 29.3 PG (26-34); Mean Corpuscular Volume 86.1 fL (80-100); Monocytes Absolute Auto 400 /uL (0-900); Monocytes Percent Auto 8.1 % (3-14); Neutrophils Absolute Auto 3100 /uL (1500-7000); Neutrophils Percent Auto 65.5 % (50-75); Platelet Count 110 X10^3/uL (150-400); Red Blood Cell Count 3.91 X10^6/uL (4.0-5.2); Red Cell Distribution Width 14.9 % (11.6-14.8); White Blood Cell Count 4.7 X10^3/uL (4.5-11.0)
[2020-01-26 13:55] LABS: Albumin 3.8 g/dL (3.5-5.0); BUN Creatinine Ratio 18.2 (6-22); Blood Urea Nitrogen 54 mg/dL (7-17); Calcium 9.1 mg/dL (8.4-10.2); Carbon Dioxide 22 mmol/L (22-32); Chloride 107 mmol/L (98-107); Estimated Glomerular Filt Rate 15.3 mL/min (>60); Glucose 223 mg/dL (80-110); HEMOLYSIS < 15 (0-50); Phosphorous 4.1 mg/dL (2.8-4.1); Potassium 4.4 mmol/L (3.4-5.1); Sodium 139 mmol/L (137-145)
[2020-01-27 06:38] LABS: Parathyroid Hormone Int 168 pg/mL (15-65)
== END ==
PROVIDERS: PCP Family Medicine; Referring Provider Family Medicine; Visit Provider Internal Medicine Nephrology
DX: N18.4 Chronic kidney disease, stage 4 (severe) (principal)
CPT/HCPCS: 36415; 80069; 83970; 85025

== ENCOUNTER → 2020-03-08 13:22 | Outpatient (CLI) | payer MEDICARE, SELFPAY ==
[2020-03-08 14:04] LABS: Add Manual Diff / Slide Review NO; Basophils Absolute Auto 0 /uL (0-100); Basophils Percent Auto 0.7 % (0-2); Eosinophils Absolute Auto 100 /uL (0-450); Eosinophils Percent Auto 1.2 % (2-4); Hematocrit 31.6 % (36-46); Lymphocytes Absolute Auto 800 /uL (1100-4500); Lymphocytes Percent Auto 15.9 % (25-40); Mean Corpuscular HGB Conc 34.7 % (30-36); Mean Corpuscular Hemoglobin 29.9 PG (26-34); Mean Corpuscular Volume 86.3 fL (80-100); Monocytes Absolute Auto 400 /uL (0-900); Monocytes Percent Auto 8.8 % (3-14); Neutrophils Absolute Auto 3600 /uL (1500-7000); Neutrophils Percent Auto 73.4 % (50-75); Platelet Count 114 X10^3/uL (150-400); Red Blood Cell Count 3.66 X10^6/uL (4.0-5.2); Red Cell Distribution Width 15.4 % (11.6-14.8); White Blood Cell Count 4.9 X10^3/uL (4.5-11.0)
[2020-03-08 14:29] LABS: Albumin 3.4 g/dL (3.5-5.0); BUN Creatinine Ratio 17.2 (6-22); Blood Urea Nitrogen 45 mg/dL (7-17); Calcium 8.4 mg/dL (8.4-10.2); Carbon Dioxide 20 mmol/L (22-32); Chloride 107 mmol/L (98-107); Estimated Glomerular Filt Rate 17.7 mL/min (>60); Glucose 352 mg/dL (80-110); HEMOLYSIS < 15 (0-50); Phosphorous 5.6 mg/dL (2.8-4.1); Potassium 4.5 mmol/L (3.4-5.1); Sodium 138 mmol/L (137-145)
[2020-03-09 10:15] LABS: Parathyroid Hormone Int 226 pg/mL (15-65)
== END ==
PROVIDERS: PCP Family Medicine; Referring Provider Internal Medicine Nephrology; Visit Provider Internal Medicine Nephrology
DX: N18.4 Chronic kidney disease, stage 4 (severe) (principal)
CPT/HCPCS: 36415; 80069; 83970; 85025

== ENCOUNTER → 2020-05-10 13:29 | Outpatient (CLI) | payer MEDICARE, SELFPAY ==
[2020-05-10 14:47] LABS: Add Manual Diff / Slide Review NO; Basophils Absolute Auto 0 /uL (0-100); Basophils Percent Auto 0.7 % (0-2); Eosinophils Absolute Auto 0 /uL (0-450); Eosinophils Percent Auto 0.9 % (2-4); Hematocrit 31.2 % (36-46); Hemoglobin 10.4 g/dL (12.0-16.0); Lymphocytes Absolute Auto 900 /uL (1100-4500); Lymphocytes Percent Auto 16.5 % (25-40); Mean Corpuscular HGB Conc 33.4 % (30-36); Mean Corpuscular Hemoglobin 28.7 PG (26-34); Monocytes Absolute Auto 500 /uL (0-900); Monocytes Percent Auto 8.7 % (3-14); Neutrophils Absolute Auto 3900 /uL (1500-7000); Neutrophils Percent Auto 73.2 % (50-75); Platelet Count 108 X10^3/uL (150-400); Red Blood Cell Count 3.63 X10^6/uL (4.0-5.2); Red Cell Distribution Width 15.6 % (11.6-14.8); White Blood Cell Count 5.3 X10^3/uL (4.5-11.0)
[2020-05-10 16:03] LABS: Albumin 3.6 g/dL (3.5-5.0); BUN Creatinine Ratio 19.8 (6-22); Blood Urea Nitrogen 51 mg/dL (7-17); Calcium 8.7 mg/dL (8.4-10.2); Carbon Dioxide 19 mmol/L (22-32); Chloride 109 mmol/L (98-107); Glucose 334 mg/dL (80-110); HEMOLYSIS < 15 (0-50); Phosphorous 4.7 mg/dL (2.8-4.1); Potassium 4.6 mmol/L (3.4-5.1); Sodium 137 mmol/L (137-145)
== END ==
PROVIDERS: PCP Family Medicine; Referring Provider Internal Medicine Nephrology; Visit Provider Internal Medicine Nephrology
DX: N18.5 Chronic kidney disease, stage 5 (principal)
CPT/HCPCS: 36415; 80069; 85025